=== PATIENT | male | born 1965 | race Caucasian/White ===

== ENCOUNTER → 2021-01-16 09:55 | Outpatient (BNVA) | payer OTHER, SELFPAY | PROVIDERS: Family Provider Family Medicine; PCP Family Medicine; Visit Provider Surgery | DX: Z20.822 Contact with and (suspected) exposure to COVID-19 (principal) | CPT/HCPCS: 87635 ==

== ENCOUNTER → 2021-03-05 11:14 | Outpatient (BNVA) | payer OTHER, SELFPAY | PROVIDERS: Family Provider Family Medicine; PCP Family Medicine; Visit Provider Surgery | DX: Z01.812 Encounter for preprocedural laboratory examination (principal); Z20.822 Contact with and (suspected) exposure to COVID-19 | CPT/HCPCS: 87635 ==

== ENCOUNTER 2021-03-08 08:13 | Day surgery (SDC) | payer OTHER, SELFPAY ==
[2021-01-18 15:28] VITALS: BMI 37.3
[2021-03-06 08:15] VITALS: BMI 37.3
--- NOTE | 2021-03-08 08:43 | ANES.PREANE2 ---
Pre-Anesthetic Assessment Pre-Anesthetic Assessment: Height/Weight: Height 1.78 m Weight 117.934 kg Preop Diagnosis: Anemia, screening colonoscopy Proposed Procedure: Operation Date: 01/22/21 12:30 Proposed Procedures p EGD/colon 33609 89945 D50.9(Not Applicable) - Luke Robert MD s Colonoscopy(Not Applicable) - Luke Robert MD Operation Date: 03/08/21 09:45 Proposed Procedures p EGD/Colon 50667 D50.9(Not Applicable) - Luke Robert MD s Colonoscopy 62104 D50.9(Not Applicable) - Luke Robert MD Was Beta Karla taken within 24 hours: Yes Was Clonidine taken within 24 hours: N/A Social: Social History: No alcohol and No tobacco Exam: Pre-Anes Outpt Exam: alert, oriented x 3, clear to auscultation bilaterally and regular rate & rhythm Airway: Submandibular: WNL Cervical ROM: WNL MP: 2 Dentition: Chipped Additional comments: Many chips in upper and lower front teeth History/ROS: No significant history except as noted Pulmonary: Comments: ALIZA CV/HEM: CV/HEM: Afib and CHF Comments: Hx of cardiomyopathy. METS> 4 : : None reported Hepatic: Hepatic: None reported GI: GI: GERD Comments: Concern for GI ulcer leading to anemia. No melena/hematochezia Metabolic: Metabolic: None reported Musc/skel: Musc/skel: None reported Neuropsych: Neuropsych: None reported Anesthetic Plan: ASA status: 3 Anesthesia: Anesthesia Evaluation, General and MAC Risk of > 500 ml blood loss (7ml/kg in children): No PFSH Anesthesia PFSH: Medical History (Updated 11/28/20 @ 09:27 by Luke Robert MD) Atrial fibrillation Cardiomyopathy CHF (congestive heart failure) HTN (hypertension) Iron deficiency anemia ALIZA (obstructive sleep apnea) Surgical History (Updated 11/28/20 @ 09:27 by Luke Robert MD) H/O enucleation of left eyeball History of ankle surgery S/P knee surgery Social History Smoking and tobacco status: current every day smoker (Smokeless Tobacco) smokeless tobacco Smokeless tobacco user: chewing tobacco Data Anesthesia Cardiac Studies: No Data to Display
[2021-03-08 08:47] VITALS: BP 125/78; PULSE 70; RESP 18; TEMP 36.4; O2SAT 94
[2021-03-08] MEDS: sodium chloride 0.9% 1,000 ML 30 ML IV (09:20)
--- NOTE | 2021-03-08 10:31 | W.PM.OPSFHP ---
Same Day Surgery H&P Indication for Procedure/HPI DATE OF PROCEDURE: March 08, 2021 CHIEF COMPLAINT/INDICATIONFOR SURGICAL PROCEDURE: egd/colonoscopy PREOP DIAGNOSIS: Anemia, screening colonoscopy PLANNED PROCEDRUE: Operation Date: 01/22/21 12:30 Proposed Procedures p EGD/colon 85346 10599 D50.9(Not Applicable) - Luke Robert MD s Colonoscopy(Not Applicable) - Luke Robert MD Operation Date: 03/08/21 09:45 Proposed Procedures p EGD/Colon 82654 D50.9(Not Applicable) - Luke Robert MD s Colonoscopy 41097 D50.9(Not Applicable) - Luke Robert MD Medications/Allergies* Home Medications Medication Instructions Recorded Confirmed Type aspirin 81 mg tablet,delayed 81 mg PO DAILY 06/25/19 03/08/21 History release budesonide-formoterol HFA 160 2 puff INHALATION BID 06/25/19 03/08/21 History mcg-4.5 mcg/actuation aerosol inhaler cetirizine 10 mg tablet 10 mg PO DAILY 06/25/19 03/08/21 History cyclobenzaprine 10 mg tablet 10 mg PO TID PRN 06/25/19 03/08/21 History furosemide 40 mg tablet 40 mg PO DAILY PRN 06/25/19 03/08/21 History gabapentin 300 mg capsule 300 mg PO BID 06/25/19 03/08/21 History hydrocodone 5 mg-acetaminophen 325 1 tab PO Q6H PRN 06/25/19 03/08/21 History mg tablet metoprolol tartrate 100 mg tablet 100 mg PO BID 06/25/19 03/08/21 History minoxidil 10 mg tablet 5 mg PO BID 06/25/19 03/08/21 History naproxen 500 mg tablet 500 mg PO BID 06/25/19 03/08/21 History nitroglycerin 0.4 mg sublingual 0.4 mg SUBLINGUAL Q5M PRN 06/25/19 03/06/21 History tablet omega-3 fatty acids 1,000 mg 1,000 mg PO DAILY 06/25/19 03/08/21 History capsule omeprazole 20 mg capsule,delayed 20 mg PO BID 06/25/19 03/08/21 History release potassium chloride 20 mEq 20 meq PO DAILY PRN 06/25/19 03/08/21 History tablet,extended release(part/cryst) trazodone 100 mg tablet 100 mg PO DAILY 06/25/19 03/08/21 History albuterol sulfate 90 mcg/actuation 2 puff INHALATION Q6H PRN 11/14/20 03/08/21 History aerosol inhaler antiarthritic combination no.2 900 900 mg PO DAILY 11/14/20 03/08/21 History mg tablet buspirone 10 mg tablet 5 mg PO BID tab 11/14/20 03/08/21 History clonidine HCl 0.2 mg tablet 0.1 mg PO QID PRN tab 11/14/20 03/08/21 History doxazosin 2 mg tablet 4 mg PO BID tab 11/14/20 03/08/21 History ferrous sulfate 325 mg (65 mg 325 mg PO DAILY 11/14/20 03/08/21 History iron) tablet,delayed release multivitamin 1 tab PO DAILY 11/14/20 03/08/21 History tiotropium bromide 2.5 2 puff INHALATION DAILY 11/14/20 03/08/21 History mcg/actuation mist for inhalation Allergies/Adverse Reactions Allergy/AdvReac Type Severity Reaction Status Date / Time cephalexin [From Keflex] Allergy ADR/ALGY-Pa Verified 03/08/21 08:52 lpitations Calcium Channel Blocking AdvReac Mild Swelling/Cr Verified 03/08/21 08:52 Agent Dilt amping Pertinent History/Comorbid Conditions* Medical History (Updated 11/28/20 @ 09:27 by Luke Robert MD) Atrial fibrillation Cardiomyopathy CHF (congestive heart failure) HTN (hypertension) Iron deficiency anemia ALIZA (obstructive sleep apnea) Surgical History (Updated 11/28/20 @ 09:27 by Luke Robert MD) H/O enucleation of left eyeball History of ankle surgery S/P knee surgery Social History Smoking and tobacco status: current every day smoker (Smokeless Tobacco) smokeless tobacco Smokeless tobacco user: chewing tobacco Pertinent Exam Findings alert, oriented x 3 and regular rate & rhythm Recommendations Surgery/Procedure today Coding Level of Care Code Acute Collections Officer for Brad Tejada
[2021-03-08 11:02] VITALS: BP 116/69; PULSE 78; RESP 18; TEMP 36.7; O2SAT 93
[2021-03-08 11:15] VITALS: BP 133/74; PULSE 67; RESP 18; TEMP 36.7; O2SAT 95
--- NOTE | 2021-03-08 13:20 | ANE.PACU2 ---
Inpatient post-anesthesia follow up: Airway intact: Yes Vital signs: Temperature 98.0 F Pulse Rate 67 Respiratory Rate 18 Blood Pressure 133/74 Pulse Oximetry 95 Oxygen Delivery Me thod Room Air Oxygen Flow Rate Fraction of Inspir ed Oxygen Hydration adequate: Yes Nausea and vomiting: Yes Pain level: 1 Mental status: Baseline
== END 2021-03-08 11:30 | disposition home or self-care (01) ==
PROVIDERS: PCP Family Medicine; Visit Provider Surgery
PROC: 0DJD8ZZ Inspection of Lower Intestinal Tract, Via Natural or Artificial Opening Endoscopic (ICD-10-PCS; CPT 45378; 2021-03-08 09:45)
PROC: 0DJ08ZZ Inspection of Upper Intestinal Tract, Via Natural or Artificial Opening Endoscopic (ICD-10-PCS; CPT 43235; 2021-03-08 09:45)
DX: Z12.11 Encounter for screening for malignant neoplasm of colon (principal); D64.9 Anemia, unspecified; Z79.82 Long term (current) use of aspirin; I48.91 Unspecified atrial fibrillation; I11.0 Hypertensive heart disease with heart failure; I50.9 Heart failure, unspecified; G47.33 Obstructive sleep apnea (adult) (pediatric); F17.210 Nicotine dependence, cigarettes, uncomplicated; K57.30 Diverticulosis of large intestine without perforation or abscess without bleeding; K64.8 Other hemorrhoids; K21.9 Gastro-esophageal reflux disease without esophagitis
CPT/HCPCS: 43235; 45380; 96360; 96361; J2704; J7030

== ENCOUNTER 2021-09-22 12:18 | Inpatient (IN) | payer OTHER, MEDICARE, SELFPAY ==
[2021-09-22 12:30] VITALS: BP 193/90; PULSE 43; RESP 18; TEMP 36.3
--- NOTE | 2021-09-22 12:37 | XRR_ITS ---
PROCEDURE INFORMATION: Exam: XR Chest Exam date and time: 09/22/2021 12:48 PM Age: 56 years old Clinical indication: Pain; Chest pressure; Additional info: Chest pain TECHNIQUE: Imaging protocol: Radiologic exam of the chest. Views: 1 view. COMPARISON: CR Chest 1 [place] [id number] 01/01/2017 7:19 AM FINDINGS: Lungs: Unremarkable. No consolidation. Pleural spaces: Unremarkable. No pleural effusion. No pneumothorax. Heart/Mediastinum: Unremarkable. No cardiomegaly. Bones/joints: Unremarkable. XR/XR chest 1V portable [id number] IMPRESSION: No acute findings.
--- NOTE | 2021-09-22 12:37 | ECG_ITS ---
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 Measurements Intervals [place] Rate: 38 P: [place]: QRS: 58 QRSD: 111 T: 60 QT: 483 QTc: 387 Interpretive Statements ATRIAL FLUTTER WITH SLOW VENTRICULAR RESPONSE MODERATE INTRAVENTRICULAR CONDUCTION DELAY [110+ ms QRS DURATION] CRITICAL TEST RESULT Compared to ECG 01/01/2017 07:04:27 Intraventricular conduction delay now present Sinus rhythm no longer present Myocardial infarct finding no longer present Electronically Signed On 09-23-2021 13:03:07 CDT by Mratha Tipton M.D. [id number] f
--- NOTE | 2021-09-22 12:51 | W.ED.CHESTPA ---
HPI - Chest Pain General: Chief Complaint: Chest Pain Stated Complaint: Chest pain/Pressure Time Seen by Provider: 09/22/21 12:22 History of Present Illness: Patient comes in with chest pain. States he has been having off-and-on chest pain with exertion over the past week or 2. States today it became worse. He describes the chest pain as pressure in his midsternal region that radiates to his neck. Worse with exertion, and improves with rest. Denies fever, vomiting, or diarrhea. States he has had a slight cough for the past couple weeks. States he is on multiple medications for his blood pressure which is always very high, and that he has noticed recently that his heart rate is low. States he is taking less of his metoprolol due to his heart rate being so low. He states he has a history of a flutter, and stat EKG here today shows that he is currently in a flutter with a slow ventricular response. Associated symptoms: Deny abdominal pain, dyspnea, fever(s), nausea, palpitations or vomiting Review of Systems Const: Denies: fever(s) or body aches Eyes: Denies: change in vision or blurry vision ENMT: Denies: throat pain or odynophagia Card: Reports: chest pain; Denies: palpitations Resp: Reports: non-productive cough; Denies: dyspnea GI: Denies: abdominal pain, nausea or vomiting : Denies: flank pain or dysuria Musc: Denies: neck pain or back pain Skin/Breast: Denies: rash or pruritus Neuro: Denies: headache(s) or numbness in extremities Psych: Denies: anxiety or change in appetite Endo: Denies: polyuria or excessive sweating PFSH ED PFSH: Medical History Atrial fibrillation Cardiomyopathy CHF (congestive heart failure) HTN (hypertension) Iron deficiency anemia ALIZA (obstructive sleep apnea) Surgical History H/O enucleation of left eyeball H/O esophagogastroduodenoscopy (03/08/21) normal History of ankle surgery S/P knee surgery Status post colonoscopy (03/08/21) sigmoid diverticulosis Physical Exam Const: COMMON NORMALS: no acute distress, patient oriented x3, healthy appearing and alert HENMT: COMMON NORMALS: normocephalic and atraumatic HEAD & SCALP: normocephalic and atraumatic Eye: COMMON NORMALS: Equal, round and reactive pupils present and EOMs intact bilaterally PUPIL: Yes Equal, round and reactive pupils present Neck/C-Spine: COMMON NORMALS: full ROM and supple Resp: COMMON NORMALS: normal respiratory effort, No retractions and No use of accessory muscles Cardio: OTHER: Bradycardia with an irregular rhythm GI: COMMON NORMALS: Normal to inspection, nondistended, normoactive bowel sounds present, Soft to palpation and non-tender PALPATION: Yes Soft to palpation Back/Pelvis: COMMON NORMALS: thoracic and lumbar spine normal to inspection and no thoracic nor lumbar tenderness Extremity: COMMON NORMALS: normal to inspection and full ROM Neuro: COMMON NORMALS: patient oriented x3 SENSORIUM/ORIENTATION: Yes alert Psych: COMMON NORMALS: mental status grossly normal and cooperative Skin: COMMON NORMALS: no rashes or lesions noted and no wounds GENERAL SKIN EXAM: no rashes or lesions noted Course Vital Signs: Vital signs: Vital Signs Temperature 97.4 F L 09/22/21 12:30 Pulse Rate 88 09/22/21 14:06 Respiratory Rate 18 09/22/21 14:06 Blood Pressure 155/91 09/22/21 14:06 Pulse Oximetry 93 09/22/21 14:06 MDM - Chest Pain Medical Decision Making Patient comes in with chest pain. States he has been having off-and-on chest pain with exertion over the past week or 2. States today it became worse. He describes the chest pain as pressure in his midsternal region that radiates to his neck. Worse with exertion, and improves with rest. Denies fever, vomiting, or diarrhea. States he has had a slight cough for the past couple weeks. States he is on multiple medications for his blood pressure which is always very high, and that he has noticed recently that his heart rate is low. States he is taking less of his metoprolol due to his heart rate being so low. He states he has a history of a flutter, and stat EKG here today shows that he is currently in a flutter with a slow ventricular response. He is bradycardic in the 40s. We will check labs, EKG, and reassess. On reassessment the patient continues to be bradycardic. He also continues to be asymptomatic at this time. I talked him about the test results. I discussed the case with the hospitalist and we will admit for further work-up and treatment of his bradycardia. I also spoke with cardiology who will see the patient in consult. Lab Data : 09/22/21 12:44 09/22/21 12:44 Radiology Impressions Chest X-Ray 09/22/21 12:37 IMPRESSION: No acute findings. Laboratory Results WBC 5.2 10^3/uL (4.0-10.0) 09/22/21 12:44 RBC 4.35 10^6/uL (4.1-5.3) 09/22/21 12:44 Hgb 11.3 g/dL (11.7-16.6) L 09/22/21 12:44 Hct 35.1 % (42.0-52.0) L 09/22/21 12:44 MCV 80.7 fl (80-94) 09/22/21 12:44 MCH 26.0 pg (28.0-34.0) L 09/22/21 12:44 MCHC 32.2 g/dL (30.0-36.0) 09/22/21 12:44 RDW 14.6 % (12.1-15.1) 09/22/21 12:44 Plt Count 217 10^3/cmm (130-400) 09/22/21 12:44 MPV 10.8 fL (7.4-10.4) H 09/22/21 12:44 Neut % (Auto) 54.6 % 09/22/21 12:44 Lymph % (Auto) 33.3 % 09/22/21 12:44 [place] % (Auto) 7.2 % 09/22/21 12:44 Eos % (Auto) 4.3 % 09/22/21 12:44 Baso % (Auto) 0.4 % 09/22/21 12:44 Neut # (Auto) 2.82 10^3/uL (1.8-7.7) 09/22/21 12:44 Lymph # (Auto) 1.7 10^3/uL (0.8-4.8) 09/22/21 12:44 [place] # (Auto) 0.4 10^3/uL (0.2-0.9) 09/22/21 12:44 Eos # (Auto) 0.2 10^3/uL (0.0-0.8) 09/22/21 12:44 Baso # (Auto) 0.0 10^3/uL (0.0-0.1) 09/22/21 12:44 Nucleated RBC % (auto) 0 % 09/22/21 12:44 Nucleated RBCs # 0.0 /100WBC 09/22/21 12:44 Sodium 142 mmol/L (136-145) 09/22/21 12:44 Potassium 4.2 mmol/L (3.5-5.1) 09/22/21 12:44 Chloride 102 mmol/L (98-107) 09/22/21 12:44 Carbon Dioxide 29 mmol/L (22-29) 09/22/21 12:44 Anion Gap 15.2 (5-19) 09/22/21 12:44 BUN 18 mg/dL (6-20) 09/22/21 12:44 Creatinine 1.0 mg/dL (0.7-1.2) 09/22/21 12:44 GFR Calculation 77.9 mL/min (90-130) L 09/22/21 12:44 Glucose 106 mg/dL (65-115) 09/22/21 12:44 Calculated Osmolality 296 mOsm/kg (285-295) H 09/22/21 12:44 Calcium 9.2 mg/dL (8.5-10.5) 09/22/21 12:44 Total Bilirubin 0.4 mg/dL (0.15-1.2) 09/22/21 12:44 AST 14 U/L (0-40) 09/22/21 12:44 ALT 13 U/L (0-41) 09/22/21 12:44 Alkaline Phosphatase 61 IU/L (40-130) 09/22/21 12:44 Troponin T Baseline 18 ng/L (0-15) H 09/22/21 12:44 NT-Pro-B Natriuret Pep 592 pg/mL (0-125) H 09/22/21 12:44 Total Protein 7.6 g/dL (6.6-8.7) 09/22/21 12:44 Albumin 4.4 g/dL (3.5-5.2) 09/22/21 12:44 Globulin 3.2 g/dL (1.3-4.6) 09/22/21 12:44 Discharge Plan Discharge Patient Disposition: Admitted As Inpatient Admit Provider: Faina Garcia Clinical Impression: Bradycardia Condition: Stable Coding Level of Care Code ED Radiology Equipment Servicer for Chg Fwd Exam Comprehensive
[2021-09-22] MEDS: sodium chloride 0.9% 500 ML 999 ML IV (12:53)
[2021-09-22 13:01] LABS: Basophils % 0.4 %; Eosinophils # 0.2 10^3/uL (0.0-0.8); Eosinophils % 4.3 %; Hematocrit 35.1 % (42.0-52.0); Hemoglobin 11.3 g/dL (11.7-16.6); Lymphocytes # 1.7 10^3/uL (0.8-4.8); Lymphocytes % 33.3 %; Mean Corpuscular HGB Conc 32.2 g/dL (30.0-36.0); Mean Corpuscular Volume 80.7 fl (80-94); Mean Platelet Volume 10.8 fL (7.4-10.4); Monocytes # 0.4 10^3/uL (0.2-0.9); Monocytes % 7.2 %; Neutrophils # 2.82 10^3/uL (1.8-7.7); Neutrophils % 54.6 %; Nucleated Red Blood Cells % 0 %; Platelet Count 217 10^3/cmm (130-400); Red Blood Count 4.35 10^6/uL (4.1-5.3); Red Cell Distribution Width 14.6 % (12.1-15.1); White Blood Count 5.2 10^3/uL (4.0-10.0)
[2021-09-22 13:27] LABS: Troponin(5th) Baseline 18 ng/L (0-15)
[2021-09-22 13:34] LABS: Alanine Aminotransferase 13 U/L (0-41); Albumin Level 4.4 g/dL (3.5-5.2); Alkaline Phosphatase 61 IU/L (40-130); Anion Gap 15.2 (5-19); Aspartate Amino Transferase 14 U/L (0-40); Blood Urea Nitrogen 18 mg/dL (6-20); Calcium 9.2 mg/dL (8.5-10.5); Carbon Dioxide 29 mmol/L (22-29); Chloride 102 mmol/L (98-107); Creatinine Clr Calc Pharmacy 108.6629; Globulin 3.2 g/dL (1.3-4.6); Glomerular Filtration Rate 77.9 mL/min (90-130); Glucose 106 mg/dL (65-115); NT Pro B Type Natriuretic Pept 592 pg/mL (0-125); Osmolality Calculated 296 mOsm/kg (285-295); Potassium 4.2 mmol/L (3.5-5.1); Sodium 142 mmol/L (136-145); Total Bilirubin 0.4 mg/dL (0.15-1.2); Total Protein 7.6 g/dL (6.6-8.7)
[2021-09-22 14:06] VITALS: BP 155/91; PULSE 88; RESP 18; O2SAT 93
--- NOTE | 2021-09-22 14:12 | PM.HP ---
Providers/Chief Complaint Primary Care Provider: Sandra Sorto MD Chief Complaint: Chest pain/Pressure History of Present Illness Raj Tobin is a 56 year old male who does not have previous history of coronary disease or IN presented today with chief complaint of shortness of breath, exertional chest pain and bradycardia. Patient is stating that for last 2 weeks he has been noticing lower heart rate in 30s. He carries history of atrial fibrillation status post cardioversion, since cardioversion he has not been taking any anticoagulating agent. Patient is stating that after walking 40 yards he started experiencing tightness in his chest which resolved as soon as he rested. This pattern has been repeating itself for last 2 weeks. He has been noticing presyncope, lightheadedness as well. Today with this event when he noticed his heart rate it was in low 30s-40s. He was hypertensive. He decided to come to the hospital for further evaluation In the ER he was diagnosed with atrial flutter with bradycardia however no active chest pain, I have requested magnesium, TSH, serial troponin showing negative delta BNP 592 He is chest pain-free Hypertensive Review of Systems Const: Denies: fever(s) Eyes: Denies: change in vision ENMT: Denies: throat pain Card: Reports: chest pain Resp: Reports: dyspnea GI: Denies: abdominal pain : Denies: flank pain Musc: Denies: neck pain Skin/Breast: Denies: rash Neuro: Denies: headache(s) Psych: Reports: anxiety Endo: Denies: polyuria [place]/Lymph: Denies: easy bruising All/Imm: Denies: urticaria Medications/Allergies Home Medications Medication Instructions Recorded Confirmed Last Taken Type cetirizine 10 mg tablet (Zyrtec) 10 mg PO DAILY 06/25/19 04/15/21 1 Day Ago History ~03/07/21 cyclobenzaprine 10 mg tablet 10 mg PO TID PRN 06/25/19 04/15/21 1 Day Ago History ~03/07/21 furosemide 40 mg tablet 40 mg PO DAILY PRN 06/25/19 04/15/21 1 Day Ago History ~03/07/21 gabapentin 300 mg capsule 300 mg PO BID 06/25/19 04/15/21 1 Day Ago History ~03/07/21 hydrocodone 5 mg-acetaminophen 325 1 tab PO Q6H PRN 06/25/19 04/15/21 03/08/21 06:00 History mg tablet metoprolol tartrate 100 mg tablet 100 mg PO BID 06/25/19 04/15/21 03/08/21 06:00 History minoxidil 10 mg tablet 5 mg PO BID 06/25/19 04/15/21 1 Day Ago History ~03/07/21 naproxen 500 mg tablet 500 mg PO BID 06/25/19 04/15/21 1 Day Ago History ~03/07/21 nitroglycerin 0.4 mg sublingual 0.4 mg SUBLINGUAL Q5M PRN 06/25/19 04/15/21 Unknown History tablet (Nitrostat) omeprazole 20 mg capsule,delayed 20 mg PO BID 06/25/19 04/15/21 1 Day Ago History release ~03/07/21 potassium chloride 20 mEq 20 meq PO DAILY PRN 06/25/19 04/15/21 Unknown History tablet,extended release(part/cryst) (Klor-Con M) albuterol sulfate 90 mcg/actuation 2 puff INHALATION Q6H PRN 11/14/20 04/15/21 2 Days Ago History aerosol inhaler ~03/06/21 antiarthritic combination no.2 900 900 mg PO DAILY 11/14/20 04/15/21 1 Day Ago History mg tablet (glucosamine-chondroitin) ~03/07/21 buspirone 10 mg tablet 5 mg PO BID tab 11/14/20 04/15/21 1 Day Ago History ~03/07/21 clonidine HCl 0.2 mg tablet 0.1 mg PO QID PRN tab 11/14/20 04/15/21 1 Day Ago History ~03/07/21 doxazosin 2 mg tablet (Cardura) 4 mg PO BID tab 11/14/20 04/15/21 03/08/21 06:00 History multivitamin 1 tab PO DAILY 11/14/20 04/15/21 1 Day Ago History ~03/07/21 tiotropium bromide 2.5 2 puff INHALATION DAILY 11/14/20 04/15/21 1 Day Ago History mcg/actuation mist for inhalation ~03/07/21 (Spiriva Respimat) lisinopril 20 2 tab PO DAILY #120 tab 01/17/21 04/15/21 1 Day Ago Rx mg-hydrochlorothiazide 12.5 mg ~03/07/21 tablet aspirin 81 mg tablet,delayed 81 mg PO DAILY 09/22/21 09/22/21 09/22/21 History release fluticasone 250 mcg-salmeterol 50 1 inh INHALATION BID 09/22/21 09/22/21 09/22/21 History mcg/dose blistr powdr for inhalation (Wixela Inhub) omega 1-ady-dsh-fish oil 300 1 cap PO DAILY 09/22/21 09/22/21 09/22/21 History mg-1,000 mg capsule (Fish Oil) ondansetron 4 mg disintegrating 4 mg PO Q6H PRN 09/22/21 09/22/21 Unknown History tablet Allergies Allergy/AdvReac Type Severity Reaction Status Date / Time Calcium Channel Blocking AdvReac Mild Swelling/Cr Verified 09/22/21 14:32 Agent Dilt amping PFSH Acute PFSH: Medical History Atrial fibrillation Cardiomyopathy CHF (congestive heart failure) HTN (hypertension) Iron deficiency anemia ALIZA (obstructive sleep apnea) Surgical History H/O enucleation of left eyeball H/O esophagogastroduodenoscopy (03/08/21) normal History of ankle surgery S/P knee surgery Status post colonoscopy (03/08/21) sigmoid diverticulosis Vitals/I&O/Wt Last Vital Signs Temp 97.4 F L 09/22/21 12:30 Pulse 88 09/22/21 14:06 Resp 18 09/22/21 14:06 BP 155/91 09/22/21 14:06 Pulse Ox 93 09/22/21 14:06 Weight last 48 hrs Weight 117.934 kg Physical Exam Narrative: Very pleasant cooperative middle-aged male Chest pain-free Hypertensive NIH 0 Abdomen soft Irregular heart rhythm, bradycardia No active chest pain shortness of breath or presyncope Looks euvolemic Abdomen soft Obese Nonfocal neuro exam Saturating well on room air No audible stridor or wheezing Data : 09/22/21 12:44 09/22/21 12:44 A&P Assessment and plan (1) Bradycardia: Status: Acute (2) Exertional chest pain: Status: Acute (3) Unstable angina: Status: Acute (4) HTN (hypertension): Status: Acute Qualifiers: Hypertension type: essential hypertension Qualified Code(s): I10 - Essential (primary) hypertension Plan Unstable angina and symptomatic bradycardia Patient has been experiencing exertional shortness of breath, presyncope For last 2 weeks noticing bradycardia He has been taking metoprolol, he tried to cut back on his metoprolol in last 2 days EKG showing atrial flutter with bradycardia Discontinue metoprolol Plan to consult cardiology, His chest pain is typical, he will benefit from an angiogram Will follow up with cardiology recommendations I will inform Dr. Auguste Patient is full code Cardiac diet TSH is normal Downtrending troponin No tick bites Attestations Medical Necessity Statement*: I will admit him to ICU, intubated more than 2 midnights for symptomatic bradycardia Time Spent in Patient Care: 40 Coding Level of Care Code Acute Nursing Consultant for g Fwd Diagnoses Bradycardia R00.1 Exertional chest pain R07.9 Unstable angina I20.0 HTN (hypertension) I10 Hypertension type: essential hypertension
--- NOTE | 2021-09-22 14:37 | ECG_ITS ---
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 Measurements Intervals [place] Rate: 44 P: [place]: QRS: 64 QRSD: 94 T: 71 QT: 481 QTc: 412 Interpretive Statements ATRIAL FLUTTER WITH SLOW VENTRICULAR RESPONSE ABNORMAL RHYTHM ECG INTERPRETATION BASED ON A DEFAULT AGE OF 40 YEARS Compared to ECG 01/01/2017 07:04:27 Sinus rhythm no longer present Myocardial infarct finding no longer present Electronically Signed On 09-24-2021 21:33:55 CDT by Martha Tipton M.D. [id number] f
[2021-09-22 15:00] VITALS: PULSE 42; RESP 18; O2SAT 94
[2021-09-22 15:05] VITALS: BP 164/78
[2021-09-22 15:12] LABS: Thyroid Stimulating Hormone 2.07 uIU/mL (0.27-4.20)
[2021-09-22 15:21] LABS: Troponin 5 2HR 17.84 ng/L (0-15); Troponin 5 2HR Delta -0.16 ABS# (0-10)
--- NOTE | 2021-09-22 16:06 | USCV_ITS ---
Raj Tobin Age: 56 Gender: M : 1965 Exam Date: 09/22/2021 16:27 Ordering Phys: Faina Garcia MD Technologist: Jose J Damon Exam Location: [facility] – [place] Indication: dante cardia BP: 166 / 83 HR: 43 Rhythm: Sinus Technical Quality: Fair MEASUREMENTS (Male / Female) Normal Values 2D ECHO LV Diastolic Diameter PLAX 5.3 cm 4.2 - 5.9 / 3.9 - 5.3 cm LV Systolic Diameter PLAX 2.9 cm IVS Diastolic Thickness 1.4 cm 0.6 - 1.0 / 0.6 - 0.9 cm IVS Systolic Thickness 1.5 cm LVPW Diastolic Thickness 1.1 cm 0.6 - 1.0 / 0.6 - 0.9 cm LVPW Systolic Thickness 1.3 cm LVOT Diameter 2.5 cm LV Ejection Fraction 2D Teich 73.3 % LV Ejection Fraction MOD 2C 68.3 % LV Ejection Fraction 2C AL 66.4 % LA Diameter 4.3 cm IVC Diameter 2.5 cm M-MODE Aortic Annulus Diameter 3.2 cm LA Ao Ratio MM 1.4 MV E Point Septal Separation 0.7 cm DOPPLER AV Peak Velocity 163.0 cm/s LVOT Peak Velocity 106.0 cm/s AV Area Cont Eq vti 3.0 cm squared AV Area Cont Eq pk 3.3 cm squared MV Area PHT 5.0 cm squared Mitral E to A Ratio 1.5 MV E' Velocity 139.7 cm/s TR Peak Velocity 232.3 cm/s TR Peak Gradient 21.6 mmHg Right Atrial Pressure 3.0 mmHg Pulmonary Artery Systolic Pressu 24.6 mmHg PV Peak Velocity 116.0 cm/s FINDINGS Left Ventricle Normal left ventricular cavity size and wall thickness. Normal left ventricular systolic function. Left ventricular ejection fraction is estimated at 55%. There is possible mild hypokinesis of basal to mid inferoseptal and basal inferior law. Right Ventricle Normal right ventricular size and systolic function. Right ventricular systolic pressure 24.6 mmHg. Right Atrium Normal right atrial size. Left Atrium Normal left atrial size. Mitral Valve Mildly thickened mitral valve. No mitral valve stenosis. Trace mitral valve regurgitation. Aortic Valve Aortic valve not well visualized. No aortic valve stenosis. No aortic valve regurgitation. Tricuspid Valve Structurally normal tricuspid valve. Pulmonic Valve Pulmonic valve not well visualized. No pulmonary valve stenosis. Pericardium No pericardial effusion. Aorta Normal-sized aortic root IVC Inferior vena cava not visualized. CONCLUSIONS 1. Normal left ventricular cavity size and wall thickness. Normal left ventricular systolic function. Left ventricular ejection fraction is estimated at 55%. There is possible mild hypokinesis of basal to mid inferoseptal and basal inferior law. 2. Normal right ventricular size and systolic function. 3. Normal pulmonary artery pressure. 4. When compared to previous study dated 04/04/2015, there is new regional wall motion abnormality. Martha Tipton MD (Electronically Signed) Final Date: 23 September 2021 09:52 S
[2021-09-22] MEDS: gabapentin 300 mg Capsule PO (17:39)
[2021-09-22] MEDS: BuSPIRONE 10 mg Tablet 5 MG PO (17:39)
[2021-09-22] MEDS: pantoprazole DR 40 mg Tablet PO (17:40)
--- NOTE | 2021-09-22 18:37 | ECG_ITS ---
[facility] Test Date: 2021-09-22 Pat Name: Raj Tobin Department: Room: [facility] Gender: Male Dental Secretary: : 1965 Requested By: Ron Case Order Number: [id number] Machelle MD: Martha Tipton M.D. Measurements Intervals [place] Rate: 39 P: [place]: QRS: 55 QRSD: 94 T: 66 QT: 522 QTc: 422 Interpretive Statements ATRIAL flutter WITH SLOW VENTRICULAR RESPONSE CRITICAL TEST RESULT Compared to ECG 09/22/2021 14:49:29 Atrial flutter no longer present Intraventricular conduction delay no longer present Electronically Signed On 09-23-2021 13:07:38 CDT by Martha Tipton M.D. [id number]
--- NOTE | 2021-09-22 18:50 | PC.NURSE ---
arrived from ED 1600, transferred self to bed, AO x4, no complaints, HR 30s to 40s but asymptomatic
[2021-09-22 19:23] LABS: Troponin 5 6HR 17.98 ng/L (0-15)
[2021-09-22 19:25] LABS: Troponin 5 6HR Delta -0.02 ng/L (0-12)
[2021-09-22 20:19] VITALS: PULSE 77; RESP 14; O2SAT 96
[2021-09-22 22:00] VITALS: PULSE 49
[2021-09-22] MEDS: HYDROcodone-acetaminophen 5-325 mg Tablet 1 TAB PO (22:59)
[2021-09-23] VITALS (60 sets, daily range): BP systolic 130–177; BP diastolic 53–90; PULSE 32–65; RESP 0–24; TEMP 36.2; O2SAT 85–98
[2021-09-23] MEDS: HYDROcodone-acetaminophen 5-325 mg Tablet 1 TAB PO ×3 (05:18→23:33)
[2021-09-23 05:39] LABS: Basophils % 0.8 %; Eosinophils # 0.3 10^3/uL (0.0-0.8); Eosinophils % 5.6 %; Hematocrit 33.4 % (42.0-52.0); Hemoglobin 11.2 g/dL (11.7-16.6); Lymphocytes # 1.7 10^3/uL (0.8-4.8); Lymphocytes % 34.4 %; Mean Corpuscular HGB Conc 33.5 g/dL (30.0-36.0); Mean Corpuscular Hemoglobin 26.2 pg (28.0-34.0); Mean Platelet Volume 11.4 fL (7.4-10.4); Monocytes # 0.3 10^3/uL (0.2-0.9); Monocytes % 6.2 %; Neutrophils # 2.55 10^3/uL (1.8-7.7); Neutrophils % 52.8 %; Nucleated Red Blood Cells % 0 %; Platelet Count 218 10^3/cmm (130-400); Red Blood Count 4.28 10^6/uL (4.1-5.3); Red Cell Distribution Width 14.6 % (12.1-15.1); White Blood Count 4.8 10^3/uL (4.0-10.0)
[2021-09-23 06:46] LABS: Anion Gap 12.3 (5-19); Blood Urea Nitrogen 18 mg/dL (6-20); Calcium 8.9 mg/dL (8.5-10.5); Carbon Dioxide 29 mmol/L (22-29); Chloride 103 mmol/L (98-107); Glomerular Filtration Rate 87.9 mL/min (90-130); Glucose 129 mg/dL (65-115); Magnesium 1.8 mg/dL (1.7-2.3); Osmolality Calculated 294 mOsm/kg (285-295); Potassium 4.3 mmol/L (3.5-5.1); Sodium 140 mmol/L (136-145)
--- NOTE | 2021-09-23 07:01 | PC.NURSE ---
Shift Summary Patient had an uneventful shift he remains on room air and no wounds/skin issues note at this time. Reported pain overnight in the back and right hip, PRN medication administered.
--- NOTE | 2021-09-23 07:25 | P.CONIM_ITS ---
Providers/Reason For Consult Consulting Physician/Specialty*: Dr. 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 He has history of of tachycardia induced cardiomyopathy d/t atrial fibrillation requiring cardioversion in 2013- and subsequent improvement in LV function. No prior CAD history with last cath in 2011 that was normal,. 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 He usually takes metoprolol 50 mg twice a day and started adjusting his dose to 75 mg/day and he went down to 50 mg/day. He complains of upper chest and throat tightness with exertion that resolves at rest more so for the last 2 weeks. The episode yesterday lasted longer than usual along with symptoms of lightheadedness and presyncope. That is when he decided to come to the ER. Last dose of metoprolol was 50 mg yesterday morning. On presentation to the ER he was found to be in atrial flutter with slow ventricular response with heart rate in 40s. Overnight he is heart rate has ranged from high 20s to 40s. Echo shows low normal left ventricular systolic function with possible mild hypokinesis of basal inferior and basal to mid inferoseptal law. Patient remains chest pain-free while at rest. Review of Systems Const: Denies: fever(s) Eyes: Denies: change in vision ENMT: Denies: throat pain Card: Reports: chest pain, edema and lightheadedness; Denies: irregular heart rhythm, syncope or orthopnea Resp: Reports: dyspnea GI: Denies: abdominal pain, nausea, vomiting or hematochezia : Denies: flank pain or hematuria Musc: Denies: neck pain or extremity swelling Skin/Breast: Denies: rash Neuro: Denies: headache(s) Psych: Reports: anxiety Endo: Denies: polyuria Jacinto/Lymph: Denies: easy bruising, petechiae or purpura All/Imm: Denies: urticaria Medications/Allergies Home Medications Medication Instructions Recorded Confirmed Last Taken Type cetirizine 10 mg tablet (Zyrtec) 10 mg PO DAILY 06/25/19 09/22/21 09/22/21 History cyclobenzaprine 10 mg tablet 10 mg PO TID PRN 06/25/19 09/22/21 1 Day Ago History ~03/07/21 furosemide 40 mg tablet 40 mg PO DAILY PRN 06/25/19 09/22/21 1 Day Ago History ~03/07/21 gabapentin 300 mg capsule 300 mg PO BID 06/25/19 09/22/21 09/22/21 History hydrocodone 5 mg-acetaminophen 325 1 tab PO Q6H PRN 06/25/19 09/22/21 03/08/21 06:00 History mg tablet metoprolol tartrate 100 mg tablet 25 mg PO BID 06/25/19 09/22/21 09/22/21 History minoxidil 10 mg tablet 5 mg PO BID 06/25/19 09/22/21 09/22/21 History naproxen 500 mg tablet 500 mg PO BID 06/25/19 09/22/21 09/22/21 History nitroglycerin 0.4 mg sublingual 0.4 mg SUBLINGUAL Q5M PRN 06/25/19 09/22/21 Unknown History tablet (Nitrostat) omeprazole 20 mg capsule,delayed 20 mg PO BID 06/25/19 09/22/21 09/22/21 History release potassium chloride 20 mEq 20 meq PO DAILY PRN 06/25/19 09/22/21 09/22/21 History tablet,extended release(part/cryst) (Klor-Con M) albuterol sulfate 90 mcg/actuation 2 puff INHALATION Q6H PRN 11/14/20 09/22/21 2 Days Ago History aerosol inhaler ~03/06/21 antiarthritic combination no.2 900 900 mg PO DAILY 11/14/20 09/22/21 09/22/21 History mg tablet (glucosamine-chondroitin) buspirone 10 mg tablet 5 mg PO BID tab 11/14/20 09/22/21 09/22/21 History clonidine HCl 0.2 mg tablet 0.1 mg PO QID PRN tab 11/14/20 09/22/21 1 Day Ago History ~03/07/21 doxazosin 2 mg tablet (Cardura) 4 mg PO BID tab 11/14/20 09/22/21 09/22/21 History multivitamin 1 tab PO DAILY 11/14/20 09/22/21 09/22/21 History tiotropium bromide 2.5 2 puff INHALATION DAILY 11/14/20 09/22/21 09/22/21 History mcg/actuation mist for inhalation (Spiriva Respimat) lisinopril 20 2 tab PO DAILY #120 tab 01/17/21 09/22/21 09/22/21 Rx mg-hydrochlorothiazide 12.5 mg tablet aspirin 81 mg tablet,delayed 81 mg PO DAILY 09/22/21 09/22/21 09/22/21 History release fluticasone 250 mcg-salmeterol 50 1 inh INHALATION BID 09/22/21 09/22/21 09/22/21 History mcg/dose blistr powdr for inhalation (Wixela Inhub) omega 8-mbm-xdw-fish oil 300 1 cap PO DAILY 09/22/21 09/22/21 09/22/21 History mg-1,000 mg capsule (Fish Oil) ondansetron 4 mg disintegrating 4 mg PO Q6H PRN 09/22/21 09/22/21 Unknown History tablet Allergies Allergy/AdvReac Type Severity Reaction Status Date / Time Calcium Channel Blocking AdvReac Mild Swelling/Cr Verified 09/22/21 14:32 Agent Dilt amping Current Medications Generic Name Dose Route Start Last Admin Trade Name Freq PRN Reason Stop Dose Admin Hydrocodone Bitart/Acetaminophen 1 tab 09/22/21 16:39 09/23/21 05:18 Hydrocodone-Acetaminophen 5-325 Mg Tablet PO 1 tab Q6H PRN Administration Pain Buspirone HCl 5 mg 09/22/21 18:00 09/22/21 17:39 Buspirone 10 Mg Tablet PO 5 mg BID PEYMAN Administration Gabapentin 300 mg 09/22/21 18:00 09/22/21 17:39 Gabapentin 300 Mg Capsule PO 300 mg BID PEYMAN Administration Pantoprazole Sodium 40 mg 09/22/21 18:00 09/22/21 17:[address] 40 Mg Tablet PO 40 mg BID PEYMAN Administration PFSH Acute PFSH: Medical History (Updated 09/23/21 @ 09:58 by Martha Tipton MD) Atrial fibrillation Atrial flutter Cardiomyopathy CHF (congestive heart failure) HTN (hypertension) Iron deficiency anemia ALIZA (obstructive sleep apnea) Surgical History H/O enucleation of left eyeball H/O esophagogastroduodenoscopy (03/08/21) normal History of ankle surgery S/P knee surgery Status post colonoscopy (03/08/21) sigmoid diverticulosis Vitals/I&O/Wt Last Vital Signs Temp 97.2 F L 09/23/21 04:00 Pulse 40 L 09/23/21 06:00 Resp 19 H 09/23/21 05:20 BP 133/60 09/23/21 05:20 Pulse Ox 94 09/23/21 05:15 09/22/21 09/23/21 09/23/21 22:59 06:59 14:59 Intake Total 500 / 1000 Balance 500 / 1000 Weight last 48 hrs Weight 260 lb Physical Exam Narrative: GENERAL: Obese man sitting in bed in no acute distress HEENT: No pallor or icterus. Left eye prosthesis in place NECK: central trachea, No JVD, No carotid bruit. CARDIOVASCULAR SYSTEM: S1-S2 regular. Bradycardia present. No murmur rubs or gallops. RESPIRATORY SYSTEM: Chest clear to auscultation. No wheezes rhonchi or rubs heard. No use of accessory muscles. ABDOMEN: Soft, nontender and nondistended. Normal bowel sounds present. EXTREMITIES: No cyanosis trace edema. No signs of chronic venous insufficiency. 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 No focal neurological deficits. SKIN: Normal turgor and temperature. No breakdown, rash or nail changes noted. PSYCH: Normal insight and judgment. Data : 09/23/21 05:30 09/23/21 06:25 A&P Assessment and plan (1) Unstable angina: Exertional chest discomfort and shortness of breath more so in the last 2 weeks and bradycardia on arrival. Normal TSH and heart rate remains in 40s to 50s this morning in spite of holding metoprolol. Given exertional symptoms with bradycardia without any improvement in spite of holding metoprolol for 24 hours with inferior inferoseptal wall motion abnormality on echocardiogram, I will proceed with coronary angiogram. -He has not received any Lovenox/heparin in ER. -Aspirin 324 mg this morning and plan to add second antiplatelet agent based on cath findings. Risks and benefits were discussed with the patients. Alternate management options were discussed with the patient as well. Possible complications including risk of heart attack stroke and , coronary perforation, arrhythmia, cardiac tamponade in urgent CABG were discussed with the patient as well. Plan is to proceed for the procedure later today Status: Acute (2) Bradycardia: Atrial flutter with slow ventricular response -Plan for temporary pacemaker Status: Acute (3) Atrial flutter: A. fib/flutter -Patient has not been on anticoagulation as an outpatient. -We will resume after cath Status: Acute (4) HTN (hypertension): Resistant hypertension patient is on lisinopril hydrochlorothiazide, metoprolol, minoxidil, furosemide at home Status: Acute Qualifiers: Hypertension type: essential hypertension Qualified Code(s): I10 - Essential (primary) hypertension (5) CHF (congestive heart failure): Status: Acute Qualifiers: Heart failure type: diastolic Heart failure chronicity: chronic Qualified Code(s): I50.32 - Chronic diastolic (congestive) heart failure (6) ALIZA (obstructive sleep apnea): Status: Acute Coding Level of Care Code Acute Jazz Singer for g Fwd Diagnoses Unstable angina I20.0 Bradycardia R00.1 HTN (hypertension) I10 Hypertension type: essential hypertension CHF (congestive heart failure) I50.32 Heart failure type: diastolic Heart failure chronicity: chronic ALIZA (obstructive sleep apnea) G47.33 Atrial flutter I48.92
[2021-09-23] MEDS: BuSPIRONE 10 mg Tablet 5 MG PO ×2 (09:07→17:25)
[2021-09-23] MEDS: gabapentin 300 mg Capsule PO ×2 (09:07→17:26)
[2021-09-23] MEDS: hydroCHLOROthiazide 25 mg Tablet 12.5 MG PO (09:07)
[2021-09-23] MEDS: lisinopril 20 mg Tablet PO (09:07)
[2021-09-23] MEDS: pantoprazole DR 40 mg Tablet PO ×2 (09:07→17:27)
--- NOTE | 2021-09-23 09:12 | XACV_ITS ---
Exam Room: 2 Ht: 178 cm Wt: 118 kg BSA: 2.46 m2 Gender: Male : 1965 Any Known Allergies: Other Exam Priority: Routine Procedure(s): Procedure Description: Diagnostic procedure Diagnostic Cath Status: Urgent Diagnostic Findings * No disease noted in the Left Main, Left Anterior Descending, Right, or Circumflex coronary arteries. * Coronary angiography shows right dominance. Conclusions 1. No disease noted in the Left Main, Left Anterior Descending, Right, or Circumflex coronary arteries. Recommendations * Continue current medical management and risk factor modification. Pressures Phase:Rest AO : 118 / 62 ( 84 ) @ 12:52:00 PM 116 / 61 ( 84 ) @ 12:53:00 PM 112 / 67 ( 85 ) @ 1:01:00 PM Clinical Evaluation EBL: 5mL-10mL Procedural Details Pre-Procedure Time Out. Identified patient by full name and date of as verbalized by the patient/guarantor. Does the consent match the physician's order: Yes. Accurate & Complete Informed Consent: Yes. Inpatient/Outpatient History & Physical on Chart: Yes. If H&P is completed, is and addenduem needed: No; If yes, is the addendum complete: N/A. Visualize and Verify Site with Patient/Guarantor: N/A. Relevant Radiology Images available: Yes. Pre-op teaching completed and patient verbalized understanding. The risks, benefits, and alternatives of sedation and/or procedure were discussed by physician. The patient agrees to continue. Procedure started. [facility] Clinical Fraility Score: 3: Managing Well. Correct patient, site and procedure confirmed by cath team. PERRLA. Strong, equal hand music minister bilaterally. Lungs clear x 5 lobes. IV Site on Arrival: 18 gauge in the right anticubital. IV Site on Arrival: 20 gauge in the left forearm. IV Fluids: 0.9% NaCl at KVO. 0 mL infused prior to labeling associate. Pre Procedural Pulses: right radial was 3+. Oxygen started at 2liters/min via nasal canula AP Pads placed on the patient. right groin was prepped with chloroprep then draped in the usual sterile fashion. right radial was prepped with chloroprep then draped in the usual sterile fashion. Physician notified. Baseline sample Acquired. HR: 41 BPM. Physician arrived. Engrosser Indications: Worsening Angina. Physician scrubbed in. Immediate Pre-Procedure Time Out. Correct Patient: Yes; Correct Procedure: Yes; Correct Site: Yes; Correct Patient Position: Yes; Correct Supplies: Yes; Dried Flammable Prep: Yes; Blood Products Available: N/A;. Lidocaine 1% infiltrated to the right radial. Arterial access obtained. sheath removed over the wire. A new 6Fr sheath inserted OTW. sheath and wire removed. ultrasound being used to find arterial access. Dr. Ugalde called to assist. Dr. Ugalde arrived. Unable to obtain radial access. MD attempting to gain access in the Femoral artery. Dr. Ugalde scrubbed in. TR band placed on the radial access site. Lidocaine 1% infiltrated to the right groin. Arterial access obtained. A 5 palauan JL4 catheter in over wire. Multiple views taken of left coronary artery. Catheter removed over the standard wire. A 5 palauan JR4 catheter in over wire. Multiple views taken of right coronary artery. Catheter removed over the standard wire. A Right femoral angiogram was performed to determine safe placement of closure device by Dr. Ugalde. A Angio-Seal VIP ([place]) was successful obtaining hemostatsis at the Right Femoral artery insertion site. Post Procedure: Pulses reassessed and unchanged. PERRLA. Strong, equal hand music minister bilaterally. No VTE prophylaxis required. Medication's Wasted: Lidocaine 1% = 3 mL. Medication's Wasted: Heparin = 6000 units. Medication's Wasted: Nitro = 49.9 mg. Total IV fluids: 102 mL. Contrast type used: Omnipaque 300 mgI/mL, 500 mL bottle. Estimated blood loss: 5mL-10mL. Responsiveness - Normal response to verbal stimuli; alert and oriented, PERRLA. Airway - Unaffected, no intervention required; spontaneous ventilation. Circulation: W/N/L, pulses unchanged. Nausea/Vomiting: No. Procedure completed. Patient transferred by bed to ICU. Vital chart was stopped. Access Site Site: Right Radial artery Sheath Size: 6 Fr Hemostasis Success: Unsuccessful Site: Right Femoral artery Sheath Size: 6 Fr Hemostasis Method: Angio-Seal VIP ([facility]) Hemostasis Success: Successful Procedure Medications Start: 10:35 AM Stop: 10:35 AM Medication: Fentanyl Amount: 25 mcg Route: I.V. Start: 10:42 AM Stop: 10:42 AM Medication: Versed 1 mg and Fentanyl 25 mcg Amount: 1 Route: I.V. Start: 10:46 AM Stop: 10:46 AM Medication: Versed Amount: 1 mg Route: I.V. Start: 10:46 AM Stop: 10:46 AM Medication: Fentanyl Amount: 50 mcg Route: I.V. Start: 10:51 AM Stop: 10:51 AM Medication: Versed Amount: 1 mg Route: I.V. Start: 10:51 AM Stop: 10:51 AM Medication: Fentanyl Amount: 50 mcg Route: I.V. Start: 10:52 AM Stop: 10:52 AM Medication: Hydralazine Amount: 10 mg Route: I.V. Start: 10:59 AM Stop: 10:59 AM Medication: Versed Amount: 1 mg Route: I.V. Start: 10:59 AM Stop: 10:59 AM Medication: Fentanyl Amount: 50 mcg Route: I.V. Start: 11:18 AM Stop: :18 AM Medication: Nitrogylcerin Amount: 100 mcg Route: I.A. Start: 11: AM Stop: : AM Medication: Versed Amount: 1 mg Route: I.V. Start: 11:32 AM Stop: :32 AM Medication: Versed Amount: 1 mg Route: I.V. Start: 11:32 AM Stop: :32 AM Medication: Fentanyl Amount: 50 mcg Route: I.V. Start: 11:49 AM Stop: :49 AM Medication: Versed Amount: 1 mg Route: I.V. Start: 11:49 AM Stop: 11:49 AM Medication: Fentanyl Amount: 50 mcg Route: I.V. Start: 11:49 AM Stop: 11:49 AM Medication: Hydralazine Amount: 10 mg Route: I.V. I, the attending physician, have reviewed and verified all procedure medications. Yes, all medications given per verbal order History/Risk Factors Hypertension: Yes Dyslipidemia: No Peripheral Arterial Disease (PAD): No Myocardial Infarction (MT): No Obesity: No Renal Disease: No Tobacco Use: Never Prior Interventions PCI: No CABG: No Valve Surgery: No Report Signatures Finalized by Martha Tipton MD on 09/25/2021 10:57 AM
[2021-09-23] MEDS: sodium chloride 0.9% 1,000 ML 50 ML IV ×2 (09:29→12:39)
[2021-09-23] MEDS: diphenhydrAMINE 50 mg Capsule PO (09:29)
--- NOTE | 2021-09-23 09:39 | PC.NURSE ---
Dr. Tipton at bedside, informed this nurse patient will be going to nitriles lab technician
[2021-09-23] MEDS: aspirin 81 mg Chew Tablet 324 MG PO (10:20)
--- NOTE | 2021-09-23 10:22 | PC.NURSE ---
patient off unit with director geophysical laboratory staff at this time
--- NOTE | 2021-09-23 10:38 | W.PM.OPSUD ---
Surgery/Procedure H&P Update DATE OF PROCEDURE: September 23, 2021 DATE H&P PERFORMED: 09/23/21 H&P UPDATE INFORMATION: I have reviewed H&P completed within last 30 days, I have examined patient prior to procedure and No changes to prior documentation PREOP DIAGNOSIS: Chest pain, concern for unstable angina PRIMARY INDICATION FOR PROCEDURE: Chest pain, concern for unstable angina PLANNED PROCEDURE: Left heart cathetarization PATIENT REASSESSED PRIOR TO SEDATION, WITH NO CHANGE NOTED: Yes PHYSICAL EXAM: alert, oriented x 3, clear to auscultation bilaterally and regular rate & rhythm AIRWAY EVAL/ANESTHESIA PLAN: normal airway, ASA III, Monitored Anesthesia, Local Anesthesia, Risks, benefits & alternatives of sedation and/or procedure discussed and Patient agrees to continue as planned
--- NOTE | 2021-09-23 12:33 | PC.NURSE ---
Back from experimental machining lab manager, right groin angio seal site clean dry and intact, Right wrist TR band intact with 5 ml air
--- NOTE | 2021-09-23 12:43 | P.PN_ITS ---
Subjective Subjective: Patient blood pressure has remained in 130s overnight Heart rate dipped down to 30s Remained asymptomatic This morning angiogram was clean His heart rate might improve in next 24 hours, no plan for pacemaker placement yet as per the mineralogy professor Vitals/I&O/Wt Last Vital Signs Temp 97.2 F L 09/23/21 04:00 Pulse 44 L 09/23/21 08:00 Resp 19 H 09/23/21 05:20 BP 133/60 09/23/21 05:20 Pulse Ox 94 09/23/21 08:00 09/22/21 09/23/21 09/23/21 22:59 06:59 14:59 Intake Total 500 / 1000 158.333 / 158.333 Balance 500 / 1000 158.333 / 158.333 Weight last 48 hrs Weight 117.934 kg Physical Exam Narrative: Patient is asymptomatic S1, S2 atrial flutter with bradycardia Euvolemic Abdomen soft Satting well on room air No signs of dizziness Able to get out of bed and use bathroom No respiratory distress No signs of edema of legs Data : 09/23/21 05:30 09/23/21 06:25 A&P Assessment and plan (1) Atrial flutter: Status: Acute (2) ALIZA (obstructive sleep apnea): Status: Acute (3) Unstable angina: Status: Acute (4) Exertional chest pain: Status: Acute (5) Bradycardia: Status: Acute Plan Atrial flutter with bradycardia Metoprolol has been discontinued Monitor heart rate in ICU Patient has pacer pads Hemodynamically stable Asymptomatic during hospitalization Angiogram unremarkable per Dr. Tipton Might discharge him on event monitor tomorrow TSH normal Echo reviewed Hypomagnesemia: We will give him p.o. magnesium Hypertensive urgency blood: Currently blood pressure essentially within normal range Preserved ejection fraction without acute exacerbation continue Lasix home regimen He is also taking hydrochlorothiazide Patient is full code Resume cardiac diet DVT prophylaxis on board Attestations Medical Necessity Statement*: Plan to discharge tomorrow if stays clinically stable Time Spent in Patient Care: 30 Coding Level of Care Code Acute Casing Tier for Windyg Fwd Diagnoses Atrial flutter I48.92 ALIZA (obstructive sleep apnea) G47.33 Unstable angina I20.0 Exertional chest pain R07.9 Bradycardia R00.1
[2021-09-23] MEDS: enoxaparin 40 mg/0.4 mL Syringe SUBCUT (13:11)
[2021-09-23] MEDS: magnesium oxide 400 mg tablet PO ×2 (13:11→17:26)
[2021-09-23] MEDS: hyDRALAzine 25 mg Tablet PO (14:40)
[2021-09-23] MEDS: hyDRALAzine 25 mg Tablet 50 MG PO (20:26)
[2021-09-24] VITALS (19 sets, daily range): BP systolic 147–201; BP diastolic 70–93; PULSE 36–97; RESP 12–30; O2SAT 93–98
[2021-09-24 05:30] LABS: Basophils % 0.5 %; Eosinophils # 0.3 10^3/uL (0.0-0.8); Eosinophils % 4.7 %; Hematocrit 34.1 % (42.0-52.0); Hemoglobin 11.1 g/dL (11.7-16.6); Lymphocytes # 1.6 10^3/uL (0.8-4.8); Lymphocytes % 27.8 %; Mean Corpuscular HGB Conc 32.6 g/dL (30.0-36.0); Mean Corpuscular Volume 79.9 fl (80-94); Mean Platelet Volume 10.9 fL (7.4-10.4); Monocytes # 0.4 10^3/uL (0.2-0.9); Monocytes % 7.2 %; Neutrophils # 3.39 10^3/uL (1.8-7.7); Neutrophils % 59.4 %; Nucleated Red Blood Cells % 0 %; Platelet Count 212 10^3/cmm (130-400); Red Blood Count 4.27 10^6/uL (4.1-5.3); Red Cell Distribution Width 14.7 % (12.1-15.1); White Blood Count 5.7 10^3/uL (4.0-10.0)
[2021-09-24 05:56] LABS: Anion Gap 14.1 (5-19); Blood Urea Nitrogen 12 mg/dL (6-20); Calcium 9.4 mg/dL (8.5-10.5); Carbon Dioxide 27 mmol/L (22-29); Chloride 102 mmol/L (98-107); Glomerular Filtration Rate 100.7 mL/min (90-130); Glucose 98 mg/dL (65-115); Osmolality Calculated 288 mOsm/kg (285-295); Potassium 4.1 mmol/L (3.5-5.1); Sodium 139 mmol/L (136-145)
--- NOTE | 2021-09-24 06:18 | PC.NURSE ---
Shift Summary Patient had an uneventful night he remains alert and oriented x4, no wounds or skin issues noted at this time. Remains bradycardic overnight. Patient reports feeling dizzy whenever getting up to use bathroom and also said my throat feels like it is tightening but then everything is fine when I lay back down . Patient had several reports of back pain and right hip pain overnight, PRN pain meds administered.
[2021-09-24] MEDS: HYDROcodone-acetaminophen 5-325 mg Tablet 1 TAB PO ×3 (06:39→22:44)
[2021-09-24] MEDS: aspirin 325 mg EC Tablet PO (08:11)
[2021-09-24] MEDS: gabapentin 300 mg Capsule PO ×2 (08:11→18:40)
[2021-09-24] MEDS: hyDRALAzine 25 mg Tablet 50 MG PO (08:11)
[2021-09-24] MEDS: BuSPIRONE 10 mg Tablet 5 MG PO ×2 (08:11→18:40)
[2021-09-24] MEDS: pantoprazole DR 40 mg Tablet PO ×2 (08:11→18:40)
[2021-09-24] MEDS: magnesium oxide 400 mg tablet PO ×2 (08:11→18:40)
[2021-09-24] MEDS: lisinopril 20 mg Tablet PO (08:11)
--- NOTE | 2021-09-24 08:58 | PC.NURSE ---
Dr. Garcia at bedside, informed patient Dr. Up will be consulted to determine if there is a need for pacemaker, patient gets dizzy when standing but is asymptomatic while laying in bed
--- NOTE | 2021-09-24 09:29 | PC.NURSE ---
Dr. Up at bedside, gave v.o. for 50 mg hydrazine po now, then start 100 mg tid
[2021-09-24] MEDS: hyDRALAzine 50 mg Tablet PO (09:35)
--- NOTE | 2021-09-24 09:45 | PM.CONSULT ---
Providers/Reason For Consult Consulting Physician/Specialty*: KRISTI Up MD/cardiology Reason for Consult*: Patient is a symptomatic bradycardia/atrial flutter, requiring a permanent pacer implantation Requesting Physician: Dr. Tipton/ Dr. Garcia Attending Physician: Faina Garcia MD Primary Care Provider: Sandra Sorto MD History of Present Illness History of Present Illness Raj Tobin is a 56 year old male, is admitted to hospital with complaints of chest discomfort/dizziness/weakness/near syncopal episode. This patient has a history of atrial flutter/fibrillation. He also is known to have obstructive sleep apnea, essential benign hypertension,? Heart failure. In 2013, he had an electrical cardioversion. He also had arrhythmia induced cardiomyopathy at that time. Since the cardioversion, he has been doing okay. An year ago , he had an episode of bradycardia with a heart rate in the 30s. He had some blood pressure medication changes. . Subsequently his heart rate improved. He has been doing okay up until 3 weeks ago when he started having palpitations and slow heartbeat. The heart rate was running in the 30s and 40s most of the times at home. He was feeling weak, tired, dizzy/lightheaded. Never had a complete loss of consciousness. Has no fever, chills or cough. He also had episodes of tightness/heaviness in the chest. He had a cardiac catheterization yesterday and was found to have no significant obstructive coronary artery disease. His LV ejection fraction was found to be 55% by echocardiogram Currently he is staying in atrial flutter with 4:1 and 3:1 block. Heart rate is in the 30s and low 40s. In the nighttime, the heart rate may go down into the 20s. Mainly complaining of the feeling of weakness and tiredness. Review of Systems Narrative: CONSTITUTIONAL: No fever or chills. Generalized weakness/dizziness EYES: No blurring of vision or other visual disturbances lately. Enucleation of the left eye for melanoma ENT: No hoarseness of voice, auditory disturbances or sore throat. CARDIOVASCULAR: As mentioned above. RESPIRATORY: History of sleep apnea. Noncompliant with the CPAP GASTROINTESTINAL: No hematemesis or melena. GENITOURINARY: No dysuria or hematuria. INTEGUMENTARY: No skin rashes or history of skin cancer. NEURO: No transient ischemic attacks or amaurosis. PSYCHIATRIC: No history of psychosis or major depression. HEMATOLOGIC: No bleeding disorders or significant anemia. ENDOCRINE: No history of polyuria or polydipsia. MUSCULOSKELETAL: No recent joint pain or swelling. ALLERGY/IMMUNOLOGY: As mentioned above. Medications/Allergies Home Medications Medication Instructions Recorded Confirmed Last Taken Type cetirizine 10 mg tablet (Zyrtec) 10 mg PO DAILY 06/25/19 09/22/21 09/22/21 History cyclobenzaprine 10 mg tablet 10 mg PO TID PRN 06/25/19 09/22/21 1 Day Ago History ~03/07/21 furosemide 40 mg tablet 40 mg PO DAILY PRN 06/25/19 09/22/21 1 Day Ago History ~03/07/21 gabapentin 300 mg capsule 300 mg PO BID 06/25/19 09/22/21 09/22/21 History hydrocodone 5 mg-acetaminophen 325 1 tab PO Q6H PRN 06/25/19 09/22/21 03/08/21 06:00 History mg tablet metoprolol tartrate 100 mg tablet 25 mg PO BID 06/25/19 09/22/21 09/22/21 History minoxidil 10 mg tablet 5 mg PO BID 06/25/19 09/22/21 09/22/21 History naproxen 500 mg tablet 500 mg PO BID 06/25/19 09/22/21 09/22/21 History nitroglycerin 0.4 mg sublingual 0.4 mg SUBLINGUAL Q5M PRN 06/25/19 09/22/21 Unknown History tablet (Nitrostat) omeprazole 20 mg capsule,delayed 20 mg PO BID 06/25/19 09/22/21 09/22/21 History release potassium chloride 20 mEq 20 meq PO DAILY PRN 06/25/19 09/22/21 09/22/21 History tablet,extended release(part/cryst) (Klor-Con M) albuterol sulfate 90 mcg/actuation 2 puff INHALATION Q6H PRN 11/14/20 09/22/21 2 Days Ago History aerosol inhaler ~03/06/21 antiarthritic combination no.2 900 900 mg PO DAILY 11/14/20 09/22/21 09/22/21 History mg tablet (glucosamine-chondroitin) buspirone 10 mg tablet 5 mg PO BID tab 11/14/20 09/22/21 09/22/21 History clonidine HCl 0.2 mg tablet 0.1 mg PO QID PRN tab 11/14/20 09/22/21 1 Day Ago History ~03/07/21 doxazosin 2 mg tablet (Cardura) 4 mg PO BID tab 11/14/20 09/22/21 09/22/21 History multivitamin 1 tab PO DAILY 11/14/20 09/22/21 09/22/21 History tiotropium bromide 2.5 2 puff INHALATION DAILY 11/14/20 09/22/21 09/22/21 History mcg/actuation mist for inhalation (Spiriva Respimat) lisinopril 20 2 tab PO DAILY #120 tab 01/17/21 09/22/21 09/22/21 Rx mg-hydrochlorothiazide 12.5 mg tablet aspirin 81 mg tablet,delayed 81 mg PO DAILY 09/22/21 09/22/21 09/22/21 History release fluticasone 250 mcg-salmeterol 50 1 inh INHALATION BID 09/22/21 09/22/21 09/22/21 History mcg/dose blistr powdr for inhalation (Wixela Inhub) omega 0-kvm-lva-fish oil 300 1 cap PO DAILY 09/22/21 09/22/21 09/22/21 History mg-1,000 mg capsule (Fish Oil) ondansetron 4 mg disintegrating 4 mg PO Q6H PRN 09/22/21 09/22/21 Unknown History tablet Allergies Allergy/AdvReac Type Severity Reaction Status Date / Time Calcium Channel Blocking AdvReac Mild Swelling/Cr Verified 09/22/21 14:32 Agent Dilt amping Current Medications Generic Name Dose Route Start Last Admin Trade Name Freq PRN Reason Stop Dose Admin Hydrocodone Bitart/Acetaminophen 1 tab 09/22/21 16:39 09/24/21 06:39 Hydrocodone-Acetaminophen 5-325 Mg Tablet PO 1 tab Q6H PRN Administration Pain Aspirin 325 mg 09/24/21 09:00 09/24/21 08:11 Aspirin 325 Mg Ec Tablet PO 325 mg DAILY PEYMAN Administration Buspirone HCl 5 mg 09/22/21 18:00 09/24/21 08:11 Buspirone 10 Mg Tablet PO 5 mg BID PEYMAN Administration Enoxaparin Sodium 40 mg 09/23/21 13:00 09/23/21 13:11 Enoxaparin 40 Mg/0.4 Ml Syringe SUBCUT 40 mg Q24H PEYMAN Administration Gabapentin 300 mg 09/22/21 18:00 09/24/21 08:11 Gabapentin 300 Mg Capsule PO 300 mg BID PEYMAN Administration Hydralazine HCl 50 mg 09/24/21 10:00 09/24/21 09:35 Hydralazine 50 Mg Tablet PO 09/24/21 10:01 50 mg TID ONE Administration Hydrochlorothiazide 12.5 mg 09/23/21 09:00 09/23/21 09:07 Hydrochlorothiazide 25 Mg Tablet PO 12.5 mg DAILY PEYMAN Administration Lisinopril 20 mg 09/23/21 09:00 09/24/21 08:11 Lisinopril 20 Mg Tablet PO 20 mg DAILY PEYMAN Administration Magnesium Oxide 400 mg 09/23/21 12:50 09/24/21 08:11 Magnesium Oxide 400 Mg Tablet PO 400 mg BID PEYMAN Administration Pantoprazole Sodium 40 mg 09/22/21 18:00 09/24/21 08:[address] 40 Mg Tablet PO 40 mg BID PEYMAN Administration PFSH Acute PFSH: Medical History Atrial fibrillation Atrial flutter Cardiomyopathy CHF (congestive heart failure) HTN (hypertension) Iron deficiency anemia ALIZA (obstructive sleep apnea) Surgical History H/O enucleation of left eyeball H/O esophagogastroduodenoscopy (03/08/21) normal History of ankle surgery S/P knee surgery Status post colonoscopy (03/08/21) sigmoid diverticulosis Vitals/I&O/Wt Last Vital Signs Temp 97.2 F L 09/23/21 04:00 Pulse 37 L 09/24/21 06:00 Resp 16 09/23/21 20:15 BP 155/82 09/23/21 13:00 Pulse Ox 97 09/23/21 20:15 09/23/21 09/24/21 09/24/21 22:59 06:59 14:59 Intake Total 500 / 658.333 Output Total 600 / 600 Balance -600 / -441.667 500 / 58.333 Weight last 48 hrs Weight 260 lb Physical Exam Narrative: GENERAL: The patient is alert and oriented times three. Not in any acute distress. HEENT: No significant pallor, icterus or lymphadenopathy.artificial left eye. Oral cavity: There are no mucous membrane lesions. NECK: Trachea appears to be central. No masses noted. No JVD or thyromegaly appreciated. RESPIRATORY: Chest is symmetrical. No intercostals muscle retraction or any accessory muscle activation. There is no chest wall tenderness. Breath sounds are heard bilaterally. No rales or rhonchi heard. No evidence of any consolidation. BREASTS: Deferred. HEART: The heart sounds are normal. No S3 or S4. No significant murmurs. No pericardial rub ABDOMEN: No vessel pulsations or distention. No tenderness. No organomegaly appreciated. Bowel sounds are normally heard. : Deferred. RECTAL: Deferred. LYMPHATIC: No lymphadenopathy noted in the neck. EXTREMITIES: No edema or cyanosis. No clubbing. MUSCULOSKELETAL: No acute joint deformities or swelling SKIN: There are no significant rashes or ecchymosis NEUROPSYCHIATRIC: The patient is alert and oriented x3. Appears to be in a good mood. No tremors or rigidity noted. Data : 09/24/21 05:00 09/24/21 05:00 A&P Assessment and plan (1) Symptomatic bradycardia: The patient has been on metoprolol. This was discontinued 48 hours ago. He continues to be bradycardic. Patient has underlying atrial flutter with a high degree AV block. For further management of his condition , I agree with the Dr. Tipton that he requires a permanent pacer implantation. We might consider a dual-chamber pacemaker, for symptom relief and AV synchrony. We may consider overdrive pacing of the atrium during the procedure. Status: Acute (2) Atrial flutter: Patient seems to have atrial flutter with a variable block. Mostly he is in for 4:1 block. For further management of his condition, he requires a permanent pacemaker implantation. Since it is a recent episode, most likely we might be able to cardiovert him. Status: Acute (3) HTN (hypertension): Blood pressure is a stage II. We will try to optimize his antihypertensive medications. Status: Acute Qualifiers: Hypertension type: essential hypertension Qualified Code(s): I10 - Essential (primary) hypertension (4) ALIZA (obstructive sleep apnea): Patient seems to understand the cardiovascular implications of the sleep apnea. Status: Acute Plan Consider permanent pacer implantation this afternoon. Consult Attestations Medical Necessity Statement: Patient requires continued hospital stay for close monitoring and further management Coding Level of Care Code Acute Quill Machine Tender for Chg Fwd History Expanded Problem Focused Exam Expanded Problem Focused Medical Decision Making Moderate Complexity Diagnoses Symptomatic bradycardia R00.1 Atrial flutter I48.92 HTN (hypertension) I10 Hypertension type: essential hypertension ALIZA (obstructive sleep apnea) G47.33
--- NOTE | 2021-09-24 10:38 | PC.CHAP ---
Pastoral Care Encounter/Spiritual Assessment Type of Contact [] Declined chemical radiation technician visit [] Patient/Family/Request visit [] Outpatient visit [] Follow-up visit [] Physician referral [] Code/Alert [x [] Out of room [] Palliative care [] [] Receiving care in room [] Pre-surgical visit [] Trauma [] Long length of stay [x] ICU visit [x] Other: sleeping Relational/Emotional Strength [] Patient feels connected with others/family/visitors/staff [] Distress [] Loneliness/isolation [] Abandonment Spirituality of Patient [] Person of Chasity [] Attends Rastafari of their Chasity [] Believes in Prayer [] Reads Bible or Pentecostalism materials [] There are Spiritual issues to be addressed Tin Flopper Interventions [x] Prayer [] Active listening [] Non-anxious presence [] Spiritual/emotional support [] Crisis/trauma care [] Spiritual counseling [] Bereavement support [] Provided bereavement packet [] Provided Bible/devotional materials [] Provided toy/stuffed animal, coloring book to patient or family member [] Provided Communion [] Anointing/[place] [] Salvation [x] Completed spiritual assessment [] Other: Impact on Illness or Injury [] Angry [] Fearful [] Anxious [] Often cries [] Exhaustion [] Unable to work [] Unable to attend druze [] Unable to walk/stand [] Unable to read [] Unable to drive [] Unable to eat/drink [] Unable to sleep [] Unable to be with family [] Patient intubated [] Other: Summary Time spent with patient x
[2021-09-24 11:07] LABS: Glucose Point of Care 103 mg/dL (70-110)
--- NOTE | 2021-09-24 13:08 | PM.PN ---
Subjective Subjective: Patient has been kept n.p.o. going for pacemaker placement no overnight events, patient is endorsing presyncopal events on ambulation Vitals/I&O/Wt Last Vital Signs Temp 97.2 F L 09/23/21 04:00 Pulse 36 L 09/24/21 12:00 Resp 13 09/24/21 12:00 BP 175/86 09/24/21 12:00 Pulse Ox 93 09/24/21 12:00 09/23/21 09/24/21 09/24/21 22:59 06:59 14:59 Intake Total 500 / 658.333 Output Total 600 / 600 Balance -600 / -441.667 500 / 58.333 Physical Exam Narrative: Euvolemic Heart rate and low 40s Hemodynamically stable Awake and alert Abdomen soft Satting well on room air at the bedside EOBAIRON ZHOU Data : 09/24/21 05:00 09/24/21 05:00 A&P Assessment and plan (1) Symptomatic bradycardia: Status: Acute (2) Atrial flutter: Status: Acute (3) ALIZA (obstructive sleep apnea): Status: Acute (4) Unstable angina: Status: Acute (5) Exertional chest pain: Status: Acute (6) Bradycardia: Status: Acute Plan Nonobstructive coronary artery disease Plan for pacemaker placement today N.p.o. No overnight events +4 magnesium about 2 Appreciate cardiology recommendations Plan to discharge him tomorrow if stays clinically stable Discontinue metoprolol Patient is full code Can start cardiac diet after his procedure Attestations Medical Necessity Statement*: Pacemaker placement today Time Spent in Patient Care: 30 Coding Level of Care Code Acute Cutlet Maker Pork for [facility] Diagnoses Symptomatic bradycardia R00.1 Atrial flutter I48.92 ALIZA (obstructive sleep apnea) G47.33 Unstable angina I20.0 Exertional chest pain R07.9 Bradycardia R00.1
[2021-09-24] MEDS: hyDRALAzine 50 mg Tablet 100 MG PO ×2 (14:26→22:27)
--- NOTE | 2021-09-24 16:32 | W.PM.OPSUD ---
Surgery/Procedure H&P Update DATE OF PROCEDURE: September 24, 2021 DATE H&P PERFORMED: 09/24/21 H&P UPDATE INFORMATION: I have reviewed H&P completed within last 30 days, I have examined patient prior to procedure and No changes to prior documentation PREOP DIAGNOSIS: Symptomatic bradycardia/atrial flutter PLANNED PROCEDURE: Operation Date: 09/23/21 10:30 Proposed Procedures Transvenous permanent dual-chamber pacemaker implantation PATIENT REASSESSED PRIOR TO SEDATION, WITH NO CHANGE NOTED: Yes PHYSICAL EXAM: alert, oriented x 3, clear to auscultation bilaterally and regular rate & rhythm AIRWAY EVAL/ANESTHESIA PLAN: normal airway, see other exam findings, ASA II, Monitored Anesthesia, Local Anesthesia, Risks, benefits & alternatives of sedation and/or procedure discussed and Patient agrees to continue as planned
--- NOTE | 2021-09-24 18:26 | PM.OP ---
Operative Report Date of procedure: September 24, 2021 Pre-op diagnosis: Preop Diagnosis Symptomatic bradycardia/atrial flutter Procedure: LOCATION: ICU PREOPERATIVE DIAGNOSES: Symptomatic bradycardia/atrial flutter. POSTOPERATIVE DIAGNOSES: Same. COMPLICATIONS: None. ESTIMATED BLOOD LOSS: Around 10 milliliters. BRIEF HISTORY: 56-year-old white male with history of atrial flutter/fibrillation, hypertension, heart failure, obstructive sleep apnea, presented with complaints of weakness/dizziness/near syncopal episodes. He was found to be in atrial flutter with ventricular response rate in the 30s. He continued to be in bradyarrhythmia even after stopping the beta-mesha. For further management of his condition, a permanent pacemaker implantation was requested. A dual chamber permanent pacemaker implantation was recommended for AV synchrony and symptom relief The procedure was explained to the patient in detail with the risks and benefits. The risks of bleeding, hematoma, vascular injury, infection, pneumothorax, myocardial perforation and other concomitant complications were explained in detail, which the patient understood well and consented to proceed. PROCEDURE DESCRIPTION: The patient was brought to the Cardiac Catheterization Lab. The left and the right side of the neck and the subclavian area were cleaned and draped in a sterile fashion. 1% Xylocaine was used as the local anesthetic agent. [Left] subclavian venogram was performed by injecting 20 milliliters of Omnipaque through the left antecubital vein. A [left] subclavian venous access was obtained using an 18-gauge needle under venographic guidance. . A two-inch long incision was made 2.0 centimeters below the midclavicular region. By sharp and blunt dissection, a pacemaker pocket was made. A second venous access was obtained. Over the first guidewire, a 7-[place] Islander venous sheath with dilator was advanced. The venous dilator and the guidewire were taken out. A screw-in ventricular lead was advanced through the venous sheath and was positioned towards the right ventricle. Under fluoroscopic guidance, the ventricular lead was positioned toward the right ventricular apex. Good pacing and sensing thresholds were obtained. The lead was secured to the endocardium by advancing the helix. The stability of the lead was tested by gentle twisting movements and also by asking the patient to take some deep breaths and cough. The venous sheath was peeled off, at this time. The lead was secured to the pectoralis fascia, by suturing with 1-0 Surgilon. Over the second guidewire, another 7-[place] Islander venous sheath with dilator was advanced. The dilator and the guidewire were taken out. Under fluoroscopic guidance, an atrial lead (Medtronic), was advanced and positioned toward the right atrium. The lead was positioned in the right atrial appendage. Good pacing and sensing thresholds were obtained. The lead was secured to the endocardium by advancing the helix. Stability of the lead was tested by gentle twisting movements and also by asking the patient to take some deep breaths and cough. The venous sheath was peeled off, at this time. The lead was secured to the pectoralis fascia by suturing with 0-Surgilon. The pacemaker pocket was copiously irrigated with vancomycin solution. Complete hemostasis was achieved. Sponge counts were confirmed. The leads were attached to a Medtronic generator. The leads were positioned behind the generator and the generator was attached to the pectoralis fascia by suturing with 0-Surgilon. The pocket was closed in layers. Skin was approximated using 4-0 Vicryl. IMPLANTED DEVICES: ATRIAL LEAD: Model number: 5076/52 Serial number: [id number] Make: Medtronic VENTRICULAR LEAD: Model number: 5076/58 Serial number: [id number] Make: Medtronic GENERATOR Brand: [place] XT DR MRI Enriquepatd Model number: [id number] Serial number: [id number] Make: Medtronic IMPLANTATION DATA: With the pacing system analyzer, the R wave sensing was 6.75 millivolts with a lead impedance of 532 and a pacing threshold was 0.4 volts at 0.4 milliseconds. In the atrium, the sensing was 2.5 millivolts with a lead impedance of 435 ohms and a pacing threshold could not be obtained because of the atrial flutter. Through the device, the R-wave sensing was 5.6 millivolts with a lead impedance of 513 and a pacing threshold was 0.5 volts at 0.4 milliseconds. The atrial sensing was 1.8 millivolts with a lead impedance of 399 ohms and a pacing threshold was not obtained because of the atrial flutter The pacemaker was set for AAIR/DDDR mode with upper rate of 130 and a lower rate of 60. A pressure dressing was applied over the pacemaker site. The patient was transferred to the Medical Floor in stable condition. A chest x-ray was ordered to confirm the lead position and also to rule out any pneumothorax.
[2021-09-24] MEDS: clindamycin 900 MG/50 ML PREMIX 100 MG IV (22:29)
[2021-09-25] VITALS (20 sets, daily range): BP systolic 121–169; BP diastolic 59–99; PULSE 66–96; RESP 10–33; TEMP 36.6–36.8; O2SAT 90–99
--- NOTE | 2021-09-25 05:00 | XR_ITS ---
WS: [id number] Exam: XR chest 1V portable [id number] Date/Time of Exam: 09/25/2021 5:00 AM Reason For Exam: Poast PPM Comparison 09/22/2021. The lungs are fully expanded and clear. Heart size is top limits normal. The mediastinum and osseous thorax are unremarkable. A permanent cardiac pacer superimposes the left chest. Additional monitoring leads are seen over the chest. XR/XR chest 1V portable [id number] IMPRESSION: 1. No acute cardiopulmonary finding. Cardiac pacer in place since prior study.
[2021-09-25] MEDS: HYDROcodone-acetaminophen 5-325 mg Tablet 1 TAB PO (05:57)
[2021-09-25] MEDS: clindamycin 900 MG/50 ML PREMIX 100 MG IV ×2 (05:59→13:16)
[2021-09-25] MEDS: sodium chloride 0.9% 1,000 ML 75 ML IV (06:00)
--- NOTE | 2021-09-25 06:00 | ECG_ITS ---
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 Measurements Intervals Ward Rate: 76 P: 55 MA: 227 QRS: -75 QRSD: 184 T: 95 QT: 475 QTc: 537 Interpretive Statements ELECTRONIC VENTRICULAR PACEMAKER ABNORMAL RHYTHM ECG Compared to ECG 09/22/2021 18:26:21 Atrial flutter no longer present Electronically Signed On 09-25-2021 22:33:17 CDT by Jadon Up M.D. [email or web address]
[2021-09-25] MEDS: vancomycin 1,000 MG in sodium chloride 0.9% 250 ML 250 MG IV (06:11)
[2021-09-25] MEDS: ceFAZolin 1,000 MG in sodium chloride 0.9% (plus) 50 ML 100 MG IV (06:12)
--- NOTE | 2021-09-25 06:12 | P.DS_ITS ---
Discharge Providers Date of Admission: 09/22/21 14:15 Date of Discharge: September 25, 2021 Attending Provider at Admission: Faina Garcia MD Attending Provider at Discharge: Faina Garcia MD Primary Care Provider: Sandra Sorto MD Diagnoses at Discharge Discharge Diagnosis (1) Symptomatic bradycardia: Status: Resolved (2) Atrial flutter: Status: Acute (3) ALIZA (obstructive sleep apnea): (4) Unstable angina: (5) Exertional chest pain: (6) Bradycardia: Reason for Visit Reason for Visit: Chest pain/Pressure Hospital Course Hospital Course 56-year-old male who presented to the hospital for exertional shortness of breath, presyncope and bradycardia. Carries history of atrial flutter. At home he try to reduce the dose of beta-mesha but his heart rate was not improving. Because of recurrent symptoms he decided to come to the hospital for further evaluation. In the ER he was diagnosed with atrial flutter with slow ventricular response, 3-[address] Tipton was consulted. Patient went for angiogram next day, nonobstructive coronary disease. Echo was unremarkable. Normal TSH. Electrolytes were normal. His heart rate persistently remained in low 30 to 40s. On Friday Dr. Up placed a permanent pacemaker which improved his symptoms and the heart rate. Dr. Up commended continuation of beta- mesha at the time of discharge. Patient normally follows up with Dr. Up outpatient. CHADVASC score of 1. Dr Tipton recommended aspirin for now. DR Up is aware. Physical Exam Narrative: Nonfocal neuro exam Saturating well on room air Abdomen soft S1, S2 paced rhythm Hypotensive No audible stridor or wheezing Appropriate mood and affect Pleasant and cooperative Discharge Data Studies Completed and Pending Completed Studies During Hospitalization Category Date Time Status XR chest 1V portable [id number] Stat Exams 09/22/21 12:37 Completed CV. echo complete* [id number] Routine Ultrasound 09/22/21 16:06 Completed Pending at discharge Category Date Time Status FERMENTATION SCIENTIST request for service Routine Exams 09/23/21 09:12 Taken FERMENTATION SCIENTIST request for service Routine Exams 09/24/21 11:51 Ordered CXRP [XR chest 1V portable [id number]] Routine Exams 09/25/21 05:00 Taken Laboratory Results WBC 5.7 10^3/uL (4.0-10.0) 09/24/21 05:00 RBC 4.27 10^6/uL (4.1-5.3) 09/24/21 05:00 Hgb 11.1 g/dL (11.7-16.6) L 09/24/21 05:00 Hct 34.1 % (42.0-52.0) L 09/24/21 05:00 MCV 79.9 fl (80-94) L 09/24/21 05:00 MCH 26.0 pg (28.0-34.0) L 09/24/21 05:00 MCHC 32.6 g/dL (30.0-36.0) 09/24/21 05:00 RDW 14.7 % (12.1-15.1) 09/24/21 05:00 Plt Count 212 10^3/cmm (130-400) 09/24/21 05:00 MPV 10.9 fL (7.4-10.4) H 09/24/21 05:00 Neut % (Auto) 59.4 % 09/24/21 05:00 Lymph % (Auto) 27.8 % 09/24/21 05:00 Childress % (Auto) 7.2 % 09/24/21 05:00 Eos % (Auto) 4.7 % 09/24/21 05:00 Baso % (Auto) 0.5 % 09/24/21 05:00 Neut # (Auto) 3.39 10^3/uL (1.8-7.7) 09/24/21 05:00 Lymph # (Auto) 1.6 10^3/uL (0.8-4.8) 09/24/21 05:00 Childress # (Auto) 0.4 10^3/uL (0.2-0.9) 09/24/21 05:00 Eos # (Auto) 0.3 10^3/uL (0.0-0.8) 09/24/21 05:00 Baso # (Auto) 0.0 10^3/uL (0.0-0.1) 09/24/21 05:00 Nucleated RBC % (auto) 0 % 09/24/21 05:00 Nucleated RBCs # 0.0 /100WBC 09/24/21 05:00 Sodium 139 mmol/L (136-145) 09/24/21 05:00 Potassium 4.1 mmol/L (3.5-5.1) 09/24/21 05:00 Chloride 102 mmol/L (98-107) 09/24/21 05:00 Carbon Dioxide 27 mmol/L (22-29) 09/24/21 05:00 Anion Gap 14.1 (5-19) 09/24/21 05:00 BUN 12 mg/dL (6-20) 09/24/21 05:00 Creatinine 0.8 mg/dL (0.7-1.2) 09/24/21 05:00 GFR Calculation 100.7 mL/min (90-130) 09/24/21 05:00 Glucose 98 mg/dL (65-115) 09/24/21 05:00 POC Glucose 103 mg/dL (70-110) 09/24/21 10:57 Calculated Osmolality 288 mOsm/kg (285-295) 09/24/21 05:00 Calcium 9.4 mg/dL (8.5-10.5) 09/24/21 05:00 Magnesium 1.8 mg/dL (1.7-2.3) 09/23/21 06:25 Total Bilirubin 0.4 mg/dL (0.15-1.2) 09/22/21 12:44 AST 14 U/L (0-40) 09/22/21 12:44 ALT 13 U/L (0-41) 09/22/21 12:44 Alkaline Phosphatase 61 IU/L (40-130) 09/22/21 12:44 Troponin T Baseline 18 ng/L (0-15) H 09/22/21 12:44 Troponin T 120 Minute 17.84 ng/L (0-15) H 09/22/21 14:53 Delta Troponin T -0.16 ABS# (0-10) L 09/22/21 14:53 Troponin T Hi Sens 6Hr 17.98 ng/L (0-15) H 09/22/21 19:00 Troponin T Hi Sens 6Hr Delta -0.02 ng/L (0-12) L 09/22/21 19:00 NT-Pro-B Natriuret Pep 592 pg/mL (0-125) H 09/22/21 12:44 Total Protein 7.6 g/dL (6.6-8.7) 09/22/21 12:44 Albumin 4.4 g/dL (3.5-5.2) 09/22/21 12:44 Globulin 3.2 g/dL (1.3-4.6) 09/22/21 12:44 TSH 2.07 uIU/mL (0.27-4.20) 09/22/21 12:44 Vitals Last Vital Signs Temp 97.2 F L 09/23/21 04:00 Pulse 63 09/24/21 20:24 Resp 20 H 09/24/21 20:24 BP 152/84 09/24/21 19:00 Pulse Ox 95 09/24/21 20:24 Discharge Plan Discharge Patient Disposition: Home Condition: Stable Prescriptions: New Bactrim DS 800-160 mg tablet 1 tab PO BID 5 Days Qty: 10 0RF hydralazine 50 mg Tablet 50 mg PO TID Qty: 90 0RF Continued potassium chloride [Klor-Con M20] 20 mEq tablet,ER particles/crystals 20 meq PO DAILY PRN (Reason: other) 0RF gabapentin 300 mg capsule 300 mg PO BID 0RF cetirizine [Zyrtec] 10 mg tablet 10 mg PO DAILY 0RF nitroglycerin [Nitrostat] 0.4 mg tablet, sublingual 0.4 mg SUBLINGUAL Q5M PRN (Reason: Chest Pain) 0RF furosemide 40 mg tablet 40 mg PO DAILY PRN (Reason: edema) 0RF omeprazole 20 mg capsule,delayed release(DR/EC) 20 mg PO BID 0RF hydrocodone-acetaminophen 5-325 mg tablet 1 tab PO Q6H PRN (Reason: Pain) 0RF cyclobenzaprine 10 mg tablet 10 mg PO TID PRN (Reason: Pain) 0RF doxazosin [Cardura] 2 mg tablet 4 mg PO BID 0RF clonidine HCl 0.2 mg tablet 0.1 mg PO QID PRN (Reason: hypertensive emergency) 0RF buspirone 10 mg tablet 5 mg PO BID 0RF multivitamin Tablet 1 tab PO DAILY 0RF albuterol sulfate 90 mcg/actuation HFA aerosol inhaler 2 puff inhalation Q6H PRN (Reason: Shortness Of Breath) 0RF glucosamine-chondroitin 900 mg tablet 900 mg PO DAILY 0RF Spiriva Respimat 2.5 mcg/actuation mist 2 puff inhalation DAILY 0RF Wixela Inhub 250-50 mcg/dose Blister With Device 1 inh INHALATION BID 0RF aspirin 81 mg Tablet,Delayed Release (Dr/Ec) 81 mg PO DAILY 0RF ondansetron 4 mg Tablet,Disintegrating 4 mg PO Q6H PRN (Reason: Nausea) 0RF Fish Oil 300-1,000 mg Capsule 1 cap PO DAILY 0RF lisinopril-hydrochlorothiazide 20-12.5 mg tablet 2 tab PO DAILY Qty: 120 1RF Changed metoprolol tartrate 100 mg tablet 50 mg PO BID Qty: 60 4RF Discontinued minoxidil 10 mg tablet 5 mg PO BID 0RF naproxen 500 mg tablet 500 mg PO BID 0RF Discharge Orders: Discharge Order (Routine); Ordered 09/25/21 Ordered By: Faina Garcia Referrals: Sandra Sorto MD [Primary Care Provider] - 1-3 days (unable ) Heidi Price FNP [Nurse Practitioner] - 10/10/21 2:15 pm (post PPM placement) Martha Tipton MD [Physician] - 11/12/21 11:30 am (you will see Dr Up) Discharge Diet: Cardiac Discharge Activity: Increase activity as tolerated Patient Instructions: Sulfamethoxazole/Trimethoprim (By mouth) (Bactrim, Bactrim DS,..., Hydralazine (By mouth), Pacemaker (DC), Heart Healthy Diet (DC), Opioid Safety, Post Pacemaker - Jeovanny Yo Attestations Time Spent in Discharge Care*: less than 30 min Quality Metrics Clinical Quality Measures [ No reported AMI, CVA or VTE this stay] Coding Level of Care Code Acute Chg FW DC note Diagnoses Symptomatic bradycardia R00.1 Atrial flutter I48.92 ALIZA (obstructive sleep apnea) G47.33 Unstable angina I20.0 Exertional chest pain R07.9 Bradycardia R00.1
--- NOTE | 2021-09-25 06:25 | PC.NURSE ---
Shift Summary Patient had an uneventful shift, remains alert/oriented x4 on room air. Right groin soft to palpation, no masses felt and dressing remains dry & intact. Wearing shoulder immobilizer at this time to prevent dislodgment of pacemaker wires. IVF and Vancomycin are infusing please see MAR for infusion rates. Surgical incisions noted to the right wrist & groin-pressure dressing remains dry and intact to left upper chest. Right wrist site open to air and right groin dressing is dry and intact.
[2021-09-25] MEDS: lisinopril 20 mg Tablet PO (08:30)
[2021-09-25] MEDS: pantoprazole DR 40 mg Tablet PO (08:31)
[2021-09-25] MEDS: aspirin 325 mg EC Tablet PO (08:31)
[2021-09-25] MEDS: magnesium oxide 400 mg tablet PO (08:31)
[2021-09-25] MEDS: hyDRALAzine 50 mg Tablet 100 MG PO ×2 (08:31→16:11)
[2021-09-25] MEDS: gabapentin 300 mg Capsule PO (08:32)
[2021-09-25] MEDS: BuSPIRONE 10 mg Tablet 5 MG PO (08:32)
--- NOTE | 2021-09-25 09:22 | P.PN_ITS ---
Subjective Subjective: s/p LHC that showed normal coronaries 09/23 and s/p dual chamber PPM placement 09/25/21 and concern for atrial lead displacement today on CXR. Dr. Up Vitals/I&O/Wt Last Vital Signs Temp 97.9 F 09/25/21 06:00 Pulse 81 09/25/21 08:40 Resp 16 09/25/21 08:40 BP 155/86 09/25/21 06:00 Pulse Ox 94 09/25/21 08:40 09/24/21 09/25/21 09/25/21 22:59 06:59 14:59 Intake Total 50 / 1050 700 / 1750 250 / 250 Output Total 800 / 800 Balance 50 / 1050 -100 / 950 250 / 250 Physical Exam Narrative: GENERAL: Obese man sitting in bed in no acute distress HEENT: No pallor or icterus. Left eye prosthesis in place NECK: central trachea, No JVD, No carotid bruit. CARDIOVASCULAR SYSTEM: S1-S2 regular. No murmur rubs or gallops. RESPIRATORY SYSTEM: Chest clear to auscultation. No wheezes rhonchi or rubs heard. No use of accessory muscles. ABDOMEN: Soft, nontender and nondistended. Normal bowel sounds present. EXTREMITIES: No cyanosis trace edema. No signs of chronic venous insufficiency. FLOOR TRADER: Patient is alert oriented ?3. No focal neurological deficits. SKIN: Normal turgor and temperature. No breakdown, rash or nail changes noted. PSYCH: Normal insight and judgment. Data : 09/24/21 05:00 09/24/21 05:00 A&P Assessment and plan (1) Unstable angina: Exertional chest discomfort and shortness of breath more so in the last 2 weeks and bradycardia on arrival. Normal TSH and heart rate remains in 40s to 50s this morning in spite of holding metoprolol. -normal coronaries on C -symptoms 2/2 symptomatic bradcardia -s/p dual chamber PPM. Status: Acute (2) Bradycardia: Atrial flutter with slow ventricular response--> converted to SR earlier this morning. Status: Acute (3) Atrial flutter: Paroxysmal A. fib/flutter--converted to SR, [id number]= 1 for HTN -Patient has not been on anticoagulation as an outpatient. -start on ASA 325 mg on discharge -will consider sotalol if he develops A. fib/flutter again Status: Acute (4) HTN (hypertension): Status: Acute Qualifiers: Hypertension type: essential hypertension Qualified Code(s): I10 - Essential (primary) hypertension (5) CHF (congestive heart failure): h/o tachycardia induced cardiomyopathy -normal LV function on recent echo Status: Acute Qualifiers: Heart failure chronicity: chronic Heart failure type: diastolic Qualified Code(s): I50.32 - Chronic diastolic (congestive) heart failure (6) ALIZA (obstructive sleep apnea): Status: Acute Attestations Medical Necessity Statement*: As per primary team Coding Level of Care Code Acute Race Relations Adviser for [facility] Fwd Diagnoses Unstable angina I20.0 Bradycardia R00.1 Atrial flutter I48.92 HTN (hypertension) I10 Hypertension type: essential hypertension CHF (congestive heart failure) I50.32 Heart failure chronicity: chronic Heart failure type: diastolic ALIZA (obstructive sleep apnea) G47.33
--- NOTE | 2021-09-25 10:33 | PC.SOCIAL ---
Pg 2 IMM Explained to pt IMM. No questions voiced. Provided pt a copy. Initialed, dated, & timed a copy & placed in chart.
--- NOTE | 2021-09-25 13:15 | P.PN_ITS ---
Subjective Subjective: Jeovanny is concerned about displacement of pacemaker lead, patient will be kept n.p.o., we might not be able to discharge him today For chemical cardioversion he is recommending amiodarone, he will need Eliquis at the time of discharge Hemodynamically stable Patient had questions regarding amiodarone, antihypertensive regimen Stating he cannot take calcium channel mesha because of edema of legs Vitals/I&O/Wt Last Vital Signs Temp 97.9 F 09/25/21 06:00 Pulse 81 09/25/21 08:40 Resp 16 09/25/21 08:40 BP 155/86 09/25/21 06:00 Pulse Ox 94 09/25/21 08:40 09/24/21 09/25/21 09/25/21 22:59 06:59 14:59 Intake Total 50 / 1050 700 / 1750 250 / 250 Output Total 800 / 800 Balance 50 / 1050 -100 / 950 250 / 250 Physical Exam Narrative: Patient was resting comfortably No active chest pain or shortness of breath Saturating well on room air Nonfocal neuro exam Abdomen soft Heart rate in high 90s Hypertensive Nonfocal neuro exam No edema of legs Data : 09/24/21 05:00 09/24/21 05:00 A&P Assessment and plan (1) Symptomatic bradycardia: Status: Acute (2) Atrial flutter: Status: Acute (3) ALIZA (obstructive sleep apnea): Status: Acute (4) Unstable angina: Status: Acute (5) Exertional chest pain: Status: Acute (6) Bradycardia: Status: Acute Plan He might need readjustment of pacemaker leads, Dr. Up is planning for pacemaker interrogation He still n.p.o. Adjustment of antihypertensive regimen He cannot take question a mesha, he takes lisinopril, hydrochlorothiazide, metoprolol, I have added hydralazine avoid clonidine and minoxidil, he may benefit from addition of chlorthalidone instead of hydrochlorothiazide Hemodynamically stable Nonobstructive coronary disease Echo is unremarkable He is full code Attestations Medical Necessity Statement*: May be able to go home tomorrow Time Spent in Patient Care: 20 Coding Level of Care Code Acute Child Development Instructor for [facility] [place] Diagnoses Symptomatic bradycardia R00.1 Atrial flutter I48.92 ALIZA (obstructive sleep apnea) G47.33 Unstable angina I20.0 Exertional chest pain R07.9 Bradycardia R00.1
[2021-09-25] MEDS: metoprolol tartrate 50 mg Tablet PO (13:26)
[2021-09-25 13:42] LABS: Glucose Point of Care 97 mg/dL (70-110)
--- NOTE | 2021-09-25 13:42 | PC.NURSE ---
received patient back form [employer] ii laborer staff at 1312. No interventions done. Pulse: 85, RR: 18, BP: 162/99, temp: 98.0. patient is alert and oriented to person, place, time, and situation.
--- NOTE | 2021-09-25 14:40 | PC.NURSE ---
NUrse has noted that the swelling to the patient's neck, especially the right side, has increased. Bruising has expanded as well. HGB levels have dropped form 9.4 to 9 over the last 4 hours. Nurse has alerted Dr mckay to this. Earlier nurse took a picture of the patient's face /neck on hospital voalte phone for later comparison. Nurse took another picture after swelling has increased and sent pictures to Dr mckay via [employer] messenger.
--- NOTE | 2021-09-25 17:29 | PC.NURSE ---
Patient discharged. Medications sent to [facility] pharmacy, discharge activity, and njw medication instructions provided. FOllowup appointments made. BOth IVs removed and intact.
--- NOTE | 2021-09-25 18:45 | W.PM.OPSUD ---
Surgery/Procedure H&P Update DATE OF PROCEDURE: September 25, 2021 DATE H&P PERFORMED: 09/24/21 H&P UPDATE INFORMATION: I have reviewed H&P completed within last 30 days, I have examined patient prior to procedure, No changes to prior documentation and Changes to prior documentation as noted here (Status post pacer implantation in the left subclavian area) PREOP DIAGNOSIS: Symptomatic bradycardia/atrial flutter PRIMARY INDICATION FOR PROCEDURE: Chest x-ray appearance of lead displacement PLANNED PROCEDURE: Possible lead revision PHYSICAL EXAM: alert, oriented x 3, clear to auscultation bilaterally, regular rate & rhythm and operative site marked AIRWAY EVAL/ANESTHESIA PLAN: normal airway, see other exam findings, ASA II, Monitored Anesthesia, Local Anesthesia, Risks, benefits & alternatives of sedation and/or procedure discussed and Patient agrees to continue as planned
--- NOTE | 2021-09-25 18:47 | PM.OP ---
Operative Report Date of procedure: September 25, 2021 Pre-op diagnosis: Preop Diagnosis Symptomatic bradycardia/atrial flutter Preop Diagnosis Symptomatic bradycardia/atrial flutter Procedure: Patient was brought to the cardiac catheterization lab for a possible lead repositioning. Before giving any local anesthesia I decided to evaluate the pacemaker and the leads under fluoroscopy . Under fluoroscopy, the atrial lead was attached to the same location. However the slack on the lead was much less. The movements of the lead during atrial contraction gave and appearance of lead dislodgment. However the tip of the lead was found to be very stable. The pacemaker and the leads were again tested for sensing and pacing functions. The atrial lead was found to have better pacing and sensing function than what it had at the time of the initial implantation. Patient also was found to be normal sinus rhythm. At this point, the lead revision was canceled I I discussed this with the patient and his in detail which they understood well. Patient was sent back to the ICU. He may be discharged home this afternoon. Discussed this with Dr. Garcia and Dr. Tipton
== END 2021-09-25 17:30 | disposition home or self-care (01) | DRG 243 ==
LOC: ER 14:26 → MEDSURG 15:01 → ICU 15:03
PROVIDERS: Internal Medicine Cardiovascular Disease; Admitting Provider Internal Medicine; Emergency Provider Emergency Medicine; PCP Family Medicine; Visit Provider Internal Medicine
PROC: 03JY3ZZ Inspection of Upper Artery, Percutaneous Approach (ICD-10-PCS; principal; 2021-09-23 10:30)
PROC: 0JH606Z Insertion of Pacemaker, Dual Chamber into Chest Subcutaneous Tissue and Fascia, Open Approach (ICD-10-PCS; principal; 2021-09-24 16:30)
PROC: 02JY3ZZ Inspection of Great Vessel, Percutaneous Approach (ICD-10-PCS; principal; 2021-09-25 12:00)
DX: I48.92 Unspecified atrial flutter (principal); I20.0 Unstable angina; I50.32 Chronic diastolic (congestive) heart failure; Z79.82 Long term (current) use of aspirin; G47.33 Obstructive sleep apnea (adult) (pediatric); R00.1 Bradycardia, unspecified; E83.42 Hypomagnesemia; I11.0 Hypertensive heart disease with heart failure; I44.30 Unspecified atrioventricular block
CPT/HCPCS: 33208; 36415; 36416; 36592; 71045; 80048; 80053; 82962; 83735; 83880; 84443; 84484; 85025; 93005; 93306; 93454; 96360; 96361; 96372; 97165; 99152; 99153; 99285; C1760; C1769; C1779; C1786; C1887; C1894; C1898; J0360; J0690; J1200; J1644; J1650; J2250; J3010; J3370; J3490; J7030; J7040; J7050; Q0163; Q9967

== ENCOUNTER → 2021-10-10 14:10 | Outpatient (BNVA) | payer OTHER, SELFPAY | PROVIDERS: PCP Family Medicine; Visit Provider Nurse Practitioner Family | DX: I48.92 Unspecified atrial flutter (principal); Z95.0 Presence of cardiac pacemaker; F17.220 Nicotine dependence, chewing tobacco, uncomplicated | CPT/HCPCS: 93005; 99214 ==

== ENCOUNTER → 2021-11-09 09:59 | Outpatient (BNVA) | payer OTHER, SELFPAY | PROVIDERS: PCP Family Medicine; Visit Provider Internal Medicine Cardiovascular Disease | DX: Z45.010 Encounter for checking and testing of cardiac pacemaker pulse generator [battery] (principal) | CPT/HCPCS: 93280 ==

== ENCOUNTER → 2021-11-12 11:36 | Outpatient (BNVA) | payer OTHER, SELFPAY | PROVIDERS: PCP Family Medicine; Visit Provider Internal Medicine Cardiovascular Disease | DX: I42.8 Other cardiomyopathies (principal); I25.10 Atherosclerotic heart disease of native coronary artery without angina pectoris; Z79.899 Other long term (current) drug therapy; E78.5 Hyperlipidemia, unspecified; I11.0 Hypertensive heart disease with heart failure; I50.9 Heart failure, unspecified; Z79.01 Long term (current) use of anticoagulants; F17.220 Nicotine dependence, chewing tobacco, uncomplicated | CPT/HCPCS: 99204 ==

== ENCOUNTER 2021-11-13 11:04 | Outpatient (CLI) | payer OTHER, SELFPAY ==
[2021-11-13 11:17] LABS: Basophils # 0.1 10^3/uL (0.0-0.1); Basophils % 0.8 %; Eosinophils # 0.3 10^3/uL (0.0-0.8); Eosinophils % 4.2 %; Hematocrit 44.1 % (42.0-52.0); Hemoglobin 14.4 g/dL (11.7-16.6); Lymphocytes # 2.3 10^3/uL (0.8-4.8); Lymphocytes % 33.9 %; Mean Corpuscular HGB Conc 32.7 g/dL (30.0-36.0); Mean Corpuscular Hemoglobin 26.3 pg (28.0-34.0); Mean Corpuscular Volume 80.5 fl (80-94); Mean Platelet Volume 10.5 fL (7.4-10.4); Monocytes # 0.5 10^3/uL (0.2-0.9); Monocytes % 6.9 %; Neutrophils # 3.56 10^3/uL (1.8-7.7); Neutrophils % 53.7 %; Nucleated Red Blood Cells % 0 %; Platelet Count 225 10^3/cmm (130-400); Red Blood Count 5.48 10^6/uL (4.1-5.3); White Blood Count 6.6 10^3/uL (4.0-10.0)
[2021-11-13 11:52] LABS: Blood Urea Nitrogen 14 mg/dL (6-20); Calcium 9.9 mg/dL (8.5-10.5); Carbon Dioxide 34 mmol/L (22-29); Chloride 98 mmol/L (98-107); Glomerular Filtration Rate 117.5 mL/min (90-130); Glucose 105 mg/dL (65-115); Osmolality Calculated 289 mOsm/kg (285-295); Sodium 139 mmol/L (136-145)
[2021-11-13 11:53] LABS: Anion Gap 11.6 (5-19); Potassium 4.6 mmol/L (3.5-5.1)
== END 2021-11-13 11:05 | disposition home or self-care (01) ==
LOC: LAB 11:07
PROVIDERS: PCP Family Medicine; Visit Provider Internal Medicine Cardiovascular Disease
DX: R06.02 Shortness of breath (principal); Z79.01 Long term (current) use of anticoagulants
CPT/HCPCS: 36415; 80048; 85025

== ENCOUNTER → 2022-01-16 14:19 | Outpatient (BNVA) | payer OTHER, SELFPAY | PROVIDERS: PCP Family Medicine; Visit Provider Nurse Practitioner Family | DX: R42 Dizziness and giddiness (principal); R55 Syncope and collapse; I48.91 Unspecified atrial fibrillation; Z95.0 Presence of cardiac pacemaker; Z79.01 Long term (current) use of anticoagulants; Z79.82 Long term (current) use of aspirin | CPT/HCPCS: 93280; 99213 ==

== ENCOUNTER → 2022-02-08 10:01 | Outpatient (BNVA) | payer OTHER, SELFPAY | PROVIDERS: PCP Family Medicine; Visit Provider Internal Medicine Cardiovascular Disease | DX: Z45.010 Encounter for checking and testing of cardiac pacemaker pulse generator [battery] (principal) | CPT/HCPCS: 93280 ==

== ENCOUNTER → 2022-03-18 15:13 | Outpatient (BNVA) | payer OTHER, SELFPAY | PROVIDERS: PCP Family Medicine; Visit Provider Internal Medicine Cardiovascular Disease | DX: R06.02 Shortness of breath (principal); I25.10 Atherosclerotic heart disease of native coronary artery without angina pectoris; Z79.899 Other long term (current) drug therapy; I48.91 Unspecified atrial fibrillation; E78.5 Hyperlipidemia, unspecified | CPT/HCPCS: 36415; 80048; 99214 ==

== ENCOUNTER → 2022-05-28 15:34 | Outpatient (BNVA) | payer OTHER, SELFPAY | PROVIDERS: PCP Family Medicine; Visit Provider Internal Medicine Cardiovascular Disease | DX: Z45.010 Encounter for checking and testing of cardiac pacemaker pulse generator [battery] (principal) | CPT/HCPCS: 93296 ==

== ENCOUNTER → 2022-09-30 13:42 | Outpatient (BNVA) | payer OTHER, SELFPAY | PROVIDERS: PCP Family Medicine; Visit Provider Internal Medicine Cardiovascular Disease | DX: I95.9 Hypotension, unspecified (principal); I25.10 Atherosclerotic heart disease of native coronary artery without angina pectoris; E78.5 Hyperlipidemia, unspecified; I48.91 Unspecified atrial fibrillation; Z79.01 Long term (current) use of anticoagulants | CPT/HCPCS: 99214 ==

== ENCOUNTER → 2022-11-18 15:08 | Outpatient (BNVA) | payer OTHER, SELFPAY | PROVIDERS: PCP Family Medicine; Visit Provider Podiatrist Foot & Ankle Surgery | DX: M79.672 Pain in left foot (principal); M76.72 Peroneal tendinitis, left leg | CPT/HCPCS: 73630; 99214 ==

== ENCOUNTER → 2023-02-17 15:10 | Outpatient (BNVA) | payer OTHER, SELFPAY | PROVIDERS: PCP Family Medicine; Visit Provider Podiatrist Foot & Ankle Surgery | DX: M76.72 Peroneal tendinitis, left leg | CPT/HCPCS: 99213 ==

== ENCOUNTER → 2023-04-08 12:41 | Outpatient (BNVA) | payer OTHER, SELFPAY | PROVIDERS: PCP Family Medicine; Visit Provider Internal Medicine Cardiovascular Disease | DX: R07.9 Chest pain, unspecified (principal); Z95.0 Presence of cardiac pacemaker; I48.19 Other persistent atrial fibrillation; I25.10 Atherosclerotic heart disease of native coronary artery without angina pectoris; E78.5 Hyperlipidemia, unspecified; Z79.899 Other long term (current) drug therapy; R94.31 Abnormal electrocardiogram [ECG] [EKG] | CPT/HCPCS: 93005; 99214 ==

== ENCOUNTER → 2023-05-14 14:32 | Outpatient (BNVA) | payer OTHER, SELFPAY | PROVIDERS: PCP Family Medicine; Visit Provider Internal Medicine | DX: Z45.010 Encounter for checking and testing of cardiac pacemaker pulse generator [battery] (principal) | CPT/HCPCS: 93296 ==

== ENCOUNTER 2023-10-07 08:51 | Outpatient (CLI) | payer OTHER, SELFPAY ==
--- NOTE | 2023-10-07 08:54 | CTR_ITS ---
PROCEDURE INFORMATION: Exam: CT Lumbar Spine Without Contrast Exam date and time: 10/07/2023 9:16 AM Age: 58 years old Clinical indication: Low back pain; Patient HX: HX of melanoma; Additional info: Vertebrogenic low back pain TECHNIQUE: Imaging protocol: Computed tomography of the lumbar spine without contrast. Radiation optimization: All CT scans at this facility use at least one of these dose optimization techniques: automated exposure control; mA and/or kV adjustment per patient size (includes targeted exams where dose is matched to clinical indication); or iterative reconstruction. COMPARISON: No relevant prior studies available. RADIATION DOSE METRICS: Total DLP (mGy-cm): 1251.64 FINDINGS: Bones/joints: The lumbar vertebral body heights are maintained. The lumbar vertebral bodies are normally aligned. Mild disc space narrowing at L4-L5 with vacuum disc phenomenon. L1-L2: Broad concentric disc bulge and bilateral facet arthropathy contributing to mild central canal stenosis. Mild bilateral neuroforaminal narrowing. L2-L3: Broad concentric disc bulge and bilateral facet arthropathy contributing to moderate central canal stenosis. Mild bilateral neuroforaminal narrowing. L3-L4: Broad concentric disc bulge and bilateral facet arthropathy contributing to moderate to severe central canal stenosis. Moderate bilateral neuroforaminal narrowing. L4-L5: Broad concentric disc bulge and bilateral facet arthropathy contributing to moderate central canal stenosis. [id number] bilateral neuroforaminal narrowing L5-S1: . Broad concentric disc bulge without any significant central canal stenosis. Mild bilateral neuroforaminal narrowing. Soft tissues: Visualized soft tissues are unremarkable. CT/CT lumbar spine wo con* [id number] IMPRESSION: No acute bony abnormality. Multilevel degenerative changes as outlined above. If symptoms persist, consider further evaluation with MRI, if MRI is clinically safe to obtain.
== END 2023-10-07 08:52 | disposition home or self-care (01) ==
PROVIDERS: PCP Family Medicine; Visit Provider Anesthesiology Pain Medicine
DX: M99.63 Osseous and subluxation stenosis of intervertebral foramina of lumbar region (principal); M51.36 Other intervertebral disc degeneration, lumbar region; M47.896 Other spondylosis, lumbar region; I42.8 Other cardiomyopathies; I48.19 Other persistent atrial fibrillation; I25.10 Atherosclerotic heart disease of native coronary artery without angina pectoris; E78.5 Hyperlipidemia, unspecified; I11.0 Hypertensive heart disease with heart failure; I50.9 Heart failure, unspecified
CPT/HCPCS: 72131; 99214

== ENCOUNTER 2023-11-11 06:00 | Outpatient (RCR) | payer OTHER, SELFPAY | END 2023-12-06 23:59 | disposition home or self-care (01) | LOC: TPT 06:00 | PROVIDERS: Visit Provider Family Medicine | DX: M17.12 Unilateral primary osteoarthritis, left knee (principal) | CPT/HCPCS: 97110; 97162 ==

== ENCOUNTER → 2023-11-12 15:42 | Outpatient (BNVA) | payer OTHER, SELFPAY | PROVIDERS: PCP Family Medicine; Visit Provider Internal Medicine | DX: Z45.010 Encounter for checking and testing of cardiac pacemaker pulse generator [battery] (principal) | CPT/HCPCS: 93296 ==

== ENCOUNTER 2023-12-07 06:00 | Outpatient (RCR) | payer OTHER, SELFPAY | END 2024-01-05 23:59 | disposition home or self-care (01) | LOC: TPT 06:00 | PROVIDERS: PCP Family Medicine; Visit Provider Family Medicine | DX: M17.12 Unilateral primary osteoarthritis, left knee (principal) | CPT/HCPCS: 97110 ==

== ENCOUNTER 2024-01-06 06:00 | Outpatient (RCR) | payer OTHER, SELFPAY | END 2024-02-05 23:59 | disposition home or self-care (01) | LOC: TPT 06:00 | PROVIDERS: PCP Family Medicine; Visit Provider Family Medicine | DX: M17.12 Unilateral primary osteoarthritis, left knee (principal) | CPT/HCPCS: 97110 ==

== ENCOUNTER 2024-02-06 06:00 | Outpatient (RCR) | payer OTHER, SELFPAY | END 2024-03-06 23:59 | disposition home or self-care (01) | LOC: TPT 06:00 | PROVIDERS: PCP Family Medicine; Visit Provider Family Medicine | DX: M17.12 Unilateral primary osteoarthritis, left knee (principal) | CPT/HCPCS: 97110 ==

== ENCOUNTER → 2024-04-08 10:30 | Outpatient (BNVA) | payer OTHER, SELFPAY | PROVIDERS: PCP Family Medicine; Visit Provider Nurse Practitioner Family | DX: I48.19 Other persistent atrial fibrillation (principal); I42.8 Other cardiomyopathies; I25.10 Atherosclerotic heart disease of native coronary artery without angina pectoris; E78.5 Hyperlipidemia, unspecified; I11.0 Hypertensive heart disease with heart failure; I50.9 Heart failure, unspecified; Z79.01 Long term (current) use of anticoagulants; Z95.0 Presence of cardiac pacemaker | CPT/HCPCS: 93005; 93010; 99213 ==

== ENCOUNTER → 2024-07-21 10:54 | Outpatient (BNVA) | payer OTHER, SELFPAY | PROVIDERS: PCP Family Medicine; Visit Provider Internal Medicine Cardiovascular Disease | DX: Z45.018 Encounter for adjustment and management of other part of cardiac pacemaker (principal) | CPT/HCPCS: 93296 ==

== ENCOUNTER → 2024-10-18 11:46 | Outpatient (BNVA) | payer OTHER, SELFPAY | PROVIDERS: PCP Family Medicine; Visit Provider Internal Medicine Cardiovascular Disease | DX: I48.91 Unspecified atrial fibrillation (principal); Z95.0 Presence of cardiac pacemaker; E78.5 Hyperlipidemia, unspecified; I10 Essential (primary) hypertension; Z79.01 Long term (current) use of anticoagulants | CPT/HCPCS: 99214 ==

== ENCOUNTER → 2024-11-10 09:18 | Outpatient (BNVA) | payer OTHER, SELFPAY | PROVIDERS: PCP Family Medicine; Visit Provider Internal Medicine Cardiovascular Disease | DX: Z45.018 Encounter for adjustment and management of other part of cardiac pacemaker (principal) | CPT/HCPCS: 93296 ==